=== PATIENT | female | born 1960 | race Caucasian/White ===

== ENCOUNTER 2017-09-07 17:00 | Observation (INO) | payer BC, OTHER ==
[~2017-09-07] VITALS: Ht 162.6 cm; Wt 114.4 kg
[~2017-09-07 17:00] MED LIST: DXY100 PO; IBUP-1050 PO; RANI75TA7 PO
[2017-09-07] MEDS ORDERED: ASPIRIN 81 MG CHEW PO STA (17:12)
[2017-09-07] MEDS ORDERED: NITROGLYCERIN 2% OINTMENT 30GM TUBE EXT ONE (17:15)
--- NOTE | 2017-09-07 17:35 | DIAGNOSTIC IMAGING REPORT ---
SINGLE VIEW CHEST CLINICAL HISTORY: Atypical chest pain. FINDINGS: An AP, portable, upright chest radiograph is obtained. No prior studies are available for comparison at the time of dictation. The examination is degraded by portable technique and patient rotation. The heart is mildly enlarged and there is atherosclerotic calcification of the thoracic ureter. There is mild pulmonary vascular congestion. No airspace consolidation or large pleural effusion is identified. No pneumothorax is seen. The skeletal structures are osteopenic. The bony thorax is grossly intact. IMPRESSION: 1. Mild cardiac enlargement with mild pulmonary vascular congestion. 2. No airspace consolidation or large pleural effusion is identified. Electronically signed by: Jonel Zhou M.D. 09/07/2017 5:34 PM Dictated Date/Time: 09/07/2017 5:33 PM
[2017-09-07 17:42] LABS: BASO % 0.2 %; BASO ABS # 0.02 K/uL (0-0.2); EOS % 1.8 %; EOS ABS # 0.21 K/uL (0-0.5); HEMATOCRIT 42.8 % (37-47); HEMOGLOBIN 14.6 g/dL (12.0-16.0); IG# 0.05 K/uL (0.00-0.02); LYMPH % 21.9 %; MEAN CELL VOLUME 85.1 fL (80-100); MEAN CORPUSCULAR HGB CONC 34.1 g/dl (32-36); MEAN PLATELET VOLUME 10.1 fL (7.4-10.4); MONO % 7.9 %; NEUT % 67.8 %; NEUT ABS # 7.74 K/uL (1.4-6.5); PLATELET COUNT 297 K/uL (130-400); RED CELL DISTRIBUTION WIDTH CV 13.5 % (11.5-14.5); WHITE BLOOD COUNT 11.42 K/uL (4.8-10.8)
[2017-09-07 17:49] LABS: PTT PATIENT 24.5 SECONDS (21.0-31.0)
[2017-09-07 17:58] LABS: ALBUMIN 3.8 gm/dl (3.4-5.0); CALCIUM 9.3 mg/dl (8.5-10.1); CREATININE 1.33 mg/dl (0.60-1.20)
[2017-09-07 18:02] LABS: TOTAL PROTEIN 8.4 gm/dl (6.4-8.2)
[2017-09-07] MEDS ORDERED: IBUP-1428 PO (18:06)
[2017-09-07] MEDS ORDERED: SULF800T23 PO (18:06)
[2017-09-07] MEDS ORDERED: MULT-1019 PO (18:06)
[2017-09-07] MEDS ORDERED: OPTIRAY 320 IV PRN (18:45)
--- NOTE | 2017-09-07 18:55 | DIAGNOSTIC IMAGING REPORT ---
CT ANGIOGRAM OF THE CHEST CLINICAL HISTORY: Atypical chest pain. Back pain. COMPARISON STUDY: Chest x-ray dated 09/07/2017. TECHNIQUE: Following the IV administration of 98 cc of Optiray 320, CT angiogram of the chest was performed from the upper abdomen to the thoracic inlet utilizing the pulmonary embolus protocol. Images are reviewed in the axial, sagittal, and coronal planes. 3-D MIPS images are created and assessed. IV contrast was administered without complication. A dose lowering technique was utilized adhering to the principles of ALARA. CT DOSE: 622.08 mGy.cm FINDINGS: Thyroid: Imaged portions of the thyroid gland are normal in size and attenuation. There are numerous low-attenuation thyroid nodules which measure up to 2.2 cm. Thoracic aorta: There is mild atherosclerotic calcification of the thoracic aorta, which is normal in caliber and demonstrates standard 3-vessel arch anatomy. No dissection is seen. Pulmonary vasculature: The pulmonary trunk is normal in caliber. There are no filling defects identified in main, lobar, or segmental pulmonary branches to suggest pulmonary embolus. Heart: The heart is top normal in size and there is trace pericardial fluid. Lungs and pleural spaces: Evaluation of lung parenchyma is modestly degraded by motion artifact. Mild paraseptal emphysematous change is seen at the apices. No airspace consolidation or pleural effusion is identified. The trachea and central airways are clear. There is an irregular nodule at the right lung base seen on image #101 which measures up to 9 mm. This demonstrates a small focus of central cavitation. There is dependent atelectasis. Scattered calcified granulomas are observed. Mediastinum: There is no mediastinal lymphadenopathy. [place]: Clear. Axillae: There is no axillary lymphadenopathy. Upper abdomen: Nonobstructing calculi are present in the partially imaged upper pole of the left kidney. Left-sided hydronephrosis versus a parapelvic cyst is identified. There is a small hiatal hernia. Skeletal structures: The Skeletal structures are osteopenic. A hemangioma is seen in the body of T3. No lytic or blastic bony lesions are seen. IMPRESSION: 1. There is no evidence of pulmonary embolus in the main, lobar, or segmental pulmonary arteries. 2. Nonobstructing calculi are seen in the partially imaged left kidney. A parapelvic cyst versus hydronephrosis is seen in the left upper pole. Correlate clinically and with urinalysis for evidence of ureterolithiasis. Consider ultrasound for further assessment. 3. Mild emphysema. 4. There is no airspace consolidation or pleural effusion. 5. There is an 9 mm irregular pulmonary nodule the right lung base with a tiny focus of central cavitation. This is pathologically indeterminant, and although this may be on an inflammatory basis a 3 month follow-up chest CT is recommended to document resolution as neoplasm could also have this appearance. 6. There are numerous low-attenuation thyroid nodules measure up to 2.2 cm. Follow-up with a nonemergent thyroid ultrasound is recommended for further assessment. 7. Additional findings as above. Electronically signed by: Jonel Zhou M.D. 09/07/2017 6:54 PM Dictated Date/Time: 09/07/2017 6:46 PM
[2017-09-07] MEDS ORDERED: ONDANSETRON INJ 2 MG/ML 2 ML VIAL IV STA (19:02)
[2017-09-07] MEDS ORDERED: HYDROmorphone INJ 1 MG/ML SYR IV STA (19:02)
[2017-09-07] MEDS ORDERED: SODIUM CHLORIDE 0.9% 1000ML 1,000 ML IV STA (19:02)
--- NOTE | 2017-09-07 20:04 | DIAGNOSTIC IMAGING REPORT ---
CT SCAN OF THE ABDOMEN AND PELVIS WITHOUT IV CONTRAST CLINICAL HISTORY: Left-sided abdominal pain. COMPARISON STUDY: CT of the chest performed concurrently on 09/07/2017. TECHNIQUE: CT scan of the abdomen and pelvis is performed from the lung bases to the proximal femora. Images are reviewed in the axial, sagittal, and coronal planes. IV contrast was not administered for this examination. A dose lowering technique was utilized adhering to the principles of ALARA. The examination is significantly suboptimal for renal calculus assessment due to excreted contrast within the renal collecting system. CT DOSE: 1361.10 mGy.cm FINDINGS: Lung bases: The heart is normal in size and without pericardial effusion. There is no airspace consolidation or pleural effusion. Dependent atelectasis is at the lung bases. A 9 mm irregular nodule seen at the right lung base on image #37. This demonstrates central cavitation. Scattered calcified granulomas are identified. There is a small hiatal hernia. Liver: The unenhanced liver is normal in size, contour, and attenuation. There is no intrahepatic biliary ductal dilatation. Gallbladder: Unremarkable. Spleen: Normal in size and attenuation. Pancreas: Unremarkable. Adrenal glands: Unremarkable. Kidneys: The unenhanced kidneys demonstrate mild cortical atrophy. Numerous bilateral nonobstructing renal calculi are suggested. These are not well assessed due to excreted IV contrast within the renal collecting system. There is moderate to severe left hydroureteronephrosis. The left ureter is dilated to the pelvic inlet. An obstructing ureteral calculus is suggested in image #3 and 34 measuring at least 8 mm. Again, this is suboptimally assessed due to excreted contrast within the ureter. There is no right-sided hydronephrosis. There is no evidence of contour deforming renal mass lesion. Abdominal vasculature: The abdominal aorta is normal in course and caliber noting mild atherosclerotic calcification. Bowel: The small bowel and colon are normal in course and caliber. The appendix is well-visualized and normal. Peritoneum: There is no intraperitoneal free air or abdominal ascites. There is a fat-containing umbilical hernia. Lymphadenopathy: None. Pelvic viscera: The bladder is filled with excreted contrast and grossly unremarkable. The uterus is surgically absent. No adnexal lesion is seen. Skeletal structures: The skeletal structures are osteopenic. No lytic or blastic lesions are seen. IMPRESSION: 1. Evaluation for renal calculi is significantly compromised by excreted IV contrast filling the renal collecting system and ureters. 2. Numerous bilateral nonobstructing renal calculi are suspected. 3. There is moderate to severe left hydroureteronephrosis. The left ureter is dilated to the level of the pelvic inlet where a large obstructing ureteral calculus is suspected measuring up to at least 8 mm. 4. There is no right-sided hydronephrosis. 5. A 9 mm irregular pulmonary nodule is again seen at the right lung base with minimal central cavitation. As noted in the chest CT neoplasm is to be excluded. Follow-up chest CT in 3 months time is recommended for reassessment. 6. Additional findings as above. Electronically signed by: Jonel Zhou M.D. 09/07/2017 8:02 PM Dictated Date/Time: 09/07/2017 7:55 PM
[2017-09-07] MEDS ORDERED: NITROGLYCERIN 0.2 MG/HR PATCH TD ONE (21:00)
--- NOTE | 2017-09-07 21:16 | History and Physical ---
History & Physical Date & Time of Service: Sep 07, 2017 at 21:12 Chief Complaint: Back Pain, Arm (Left) Tingling, Nausea Primary Care Physician: Sacha Galeas M.D. History of Present Illness Source: patient, hospital records 57 y/o F without any cardiovascular history. Developed severe L sided CP while sitting at her computer. The pain was largely at the L lower chest and radiated to the her back. She describes a pleuritic element, SOB and nausea. She denies vomiting or diaphoresis. She arrived in the ER and was sent for a CTA as a dissection and PE were in the differential. No PE or dissection were identified, however, she appears to have severe L sided hydronephrosis with an obstructing 8mm calculus. Initial EKG and troponin did not support a cardiac component to her symptoms. Mild JER and mild leukocytosis were present on labs which were otherwise normal. Past Medical/Surgical History 1) Rosacea 2) Obese 3) Renal calculi Surgical Problems: 1) Hysterectomy Family History Grandmother with CAD - no other reported heart disease in the family. Social History Quit smoking in the 90s - does not drink alcohol Smoking Status: Former Smoker Immunizations History of Influenza Vaccine: No History of Tetanus Vaccine?: Unknown History of Pneumococcal: No History of Hepatitis B Vaccine: Unknown Allergies Coded Allergies: Penicillins (Verified Allergy, Unknown, HIVES, 09/07/17) Home Medications Scheduled Multiple Vitamins W/ Minerals (Multivitamin Women), 1 TAB PO DAILY Sulfa/Trimethoprim (Bactrim Ds 800MG/160MG), 1 TAB PO DAILY Scheduled PRN Ibuprofen (Motrin), 800 MG PO Q8H PRN for Pain Review of Systems Constitutional: No fever, No chills, No sweats Eyes: No worsening of vision ENT: No hearing loss, No nasal symptoms Respiratory: + shortness of breath, + problem reported, No cough, No sputum, No wheezing Cardiovascular: + chest pain (pleuritic element - radiating to back) Abdomen: + nausea, No vomiting Musculoskeletal: No joint pain Genitourinary - Female: No dysuria, No urinary frequency, No urinary urgency Neurologic: No memory loss, No paralysis, No weakness Psychiatric: No depression symptoms Endocrine: No fatigue Hematologic / Lymphatic: No abnormal bleeding/bruising Integumentary: No rash Allergic / Immunologic: No environmental allergies Physical Exam Vital Signs Date Time Temp Pulse Resp B/P (MAP) Pulse Ox O2 Delivery O2 Flow Rate FiO2 09/07/17 20:05 90 17 167/110 94 Room Air 09/07/17 18:43 97 21 180/120 95 Room Air 09/07/17 17:51 95 Room Air 09/07/17 17:24 95 Room Air 09/07/17 17:24 95 Room Air 09/07/17 17:21 104 09/07/17 17:02 36.6 97 20 202/136 95 Room Air General Appearance: WD/WN, no apparent distress Head: normocephalic Eyes: normal inspection ENT: normal ENT inspection, pharynx normal Neck: supple, no JVD Respiratory/Chest: chest non-tender, lungs clear, normal breath sounds Cardiovascular: regular rate, rhythm Abdomen/GI: normal bowel sounds, non tender, soft Back: normal inspection, no CVA tenderness Extremities/Musculoskelatal: normal inspection, no calf tenderness Neurologic/Psych: well puller II-XII nml as tested, no motor/sensory deficits, alert, oriented x 3 Skin: normal color Diagnostics Laboratory Results Results Past 24 Hours Test 09/07/17 17:21 09/07/17 17:25 Range/Units White Blood Count 11.42 4.8-10.8 K/uL Red Blood Count 5.03 4.2-5.4 M/uL Hemoglobin 14.6 12.0-16.0 g/dL Hematocrit 42.8 37-47 % Mean Corpuscular Volume 85.1 80-100 fL Mean Corpuscular Hemoglobin 29.0 25-34 pg Mean Corpuscular Hemoglobin Concent 34.1 32-36 g/dl Platelet Count 297 130-400 K/uL Mean Platelet Volume 10.1 7.4-10.4 fL Neutrophils (%) (Auto) 67.8 % Lymphocytes (%) (Auto) 21.9 % Monocytes (%) (Auto) 7.9 % Eosinophils (%) (Auto) 1.8 % Basophils (%) (Auto) 0.2 % Neutrophils # (Auto) 7.74 1.4-6.5 K/uL Lymphocytes # (Auto) 2.50 1.2-3.4 K/uL Monocytes # (Auto) 0.90 0.11-0.59 K/uL Eosinophils # (Auto) 0.21 0-0.5 K/uL Basophils # (Auto) 0.02 0-0.2 K/uL RDW Standard Deviation 42.0 36.4-46.3 fL RDW Coefficient of Variation 13.5 11.5-14.5 % Immature Granulocyte % (Auto) 0.4 % Immature Granulocyte # (Auto) 0.05 0.00-0.02 K/uL Prothrombin Time 10.0 9.0-12.0 SECONDS Prothromb Time International Ratio 1.0 0.9-1.1 Activated Partial Thromboplast Time 24.5 21.0-31.0 SECONDS Partial Thromboplastin Ratio 0.9 Sodium Level 136 136-145 mmol/L Potassium Level 4.0 3.5-5.1 mmol/L Chloride Level 102 98-107 mmol/L Carbon Dioxide Level 27 21-32 mmol/L Anion Gap 7.0 3-11 mmol/L Blood Urea Nitrogen 15 7-18 mg/dl Creatinine 1.33 0.60-1.20 mg/dl Est Creatinine Clear Calc Drug Dose 57.3 ml/min Estimated GFR () 50.9 Estimated GFR (Non- 44.0 BUN/Creatinine Ratio 11.2 10-20 Random Glucose 117 70-99 mg/dl Calcium Level 9.3 8.5-10.1 mg/dl Total Bilirubin 0.4 0.2-1 mg/dl Direct Bilirubin 0.1 0-0.2 mg/dl Aspartate Amino Transf (AST/SGOT) 19 15-37 U/L Alanine Aminotransferase (ALT/SGPT) 25 12-78 U/L Alkaline Phosphatase 158 45-117 U/L Total Creatine Kinase 75 26-192 U/L Creatine Kinase MB 1.0 0.5-3.6 ng/ml Creatine Kinase MB Ratio 1.3 0-3.0 Total Protein 8.4 6.4-8.2 gm/dl Albumin 3.8 3.4-5.0 gm/dl Lipase 271 73-393 U/L Bedside D-Dimer > 450 0-450 ng/mlFEU Bedside Troponin I < 0.030 0-0.045 ng/ml Microbiology Results 09/07/17 Urine Culture, Received Pending Diagnostic Radiology CT abdomen/pelvis: 1) Numerous bilateral nonobstructing renal calculi are suspected. 2) There is moderate to severe left hydroureteronephrosis. The left ureter is dilated to the level of the pelvic inlet where a large obstructing ureteral calculus is suspected measuring up to at least 8 mm. 3) There is no right-sided hydronephrosis. 4) A 9 mm irregular pulmonary nodule is again seen at the right lung base with CT chest: 1) There is no evidence of pulmonary embolus in the main, lobar, or segmental pulmonary arteries. 2) Nonobstructing calculi are seen in the partially imaged left kidney. A parapelvic cyst versus hydronephrosis is seen in the left upper pole. Correlate clinically and with urinalysis for evidence of ureterolithiasis. Consider ultrasound for further assessment. 3) Mild emphysema. 4) There is no airspace consolidation or pleural effusion. 5) There is an 9 mm irregular pulmonary nodule the right lung base with a tiny focus of central cavitation. This is pathologically indeterminant, and although this may be on an inflammatory basis a 3 month follow-up chest CT is recommended to document resolution as neoplasm could also have this appearance. 6) There are numerous low-attenuation thyroid nodules measure up to 2.2 cm. Follow-up with a nonemergent thyroid ultrasound is recommended for further assessment. EKG Sinus tach Impression Assessment and Plan 57 y/o F without any cardiovascular history. Developed severe L sided CP while sitting at her computer. The pain was largely at the L lower chest and radiated to the her back. She describes a pleuritic element, SOB and nausea. She denies vomiting or diaphoresis. She arrived in the ER and was sent for a CTA as a dissection and PE were in the differential. No PE or dissection were identified, however, she appears to have severe L sided hydronephrosis with an obstructing 8mm calculus. Initial EKG and troponin did not support a cardiac component to her symptoms. Mild JER and mild leukocytosis were present on labs which were otherwise normal. 1) Chest pain - lower CP with SOB - this is likely the result of her calculus, however, we cannot rule out an anginal episode which was triggered by the primary etiology. We will monitor on telemetry and obtain serial enzymes. She can likely schedule an outpt stress eventually if enzymes remain normal. 2) Obstructing calculus with resultant hydronephrosis. No current evidence of infection. Urology is consulted as this may require lithotripsy. Analgesia provided - IVF, NPO after midnight. 3) Mild JER is present - IVF provided - recheck BMP AM. 4) The pt takes daily Bactrim for rosacea - can be held pending DC. Full code - SCDs only due to possible procedure Total time for this admit including review of labs, meds, imaging, records - discussion with pt and ER attending - 38 min Resuscitation Status VTE Prophylaxis Will order VTE Prophylaxis: Yes
--- NOTE | 2017-09-07 21:22 | EMERGENCY ROOM VISIT NOTE ---
History Report prepared by Salo: Marisela Dudley Under the Supervision of: Dr. Ramakrishna Luna D.O. First contact with patient: 17:07 Chief Complaint: CHEST PAIN Stated Complaint: BACK PAIN, ARM (LEFT) TINGLING, NAUSEA History of Present Illness The patient is a 57 year old female who presents to the Emergency Room with complaints of worsening chest pain starting earlier today. The pain is in the left side of her chest under her breast. She currently rates her discomfort as a 5/10 in severity. She describes the pain as an ache with intermittent sharp pains. It worsens with walking and deep breaths. The pain started while she was sitting at her computer. She tried taking ibuprofen to no significant relief. The pain is now going into her back. She feels nauseous. She reports tingling in her left hand. She has some SOB. She denies any vomiting or leg pain. She has a history of hysterectomy for fibroids. She denies any history of hypertension. She has not had a catheterization or stress test before. She has a history of smoking. Source of History: patient Onset: earlier today Position: chest (left) Symptom Intensity: 5/10 Quality: ache, sharp Timing: worsening Modifying Factors (Worsening): breathing (deep), other (walking) Associated Symptoms: + SOB, + nausea, + back pain, No vomiting Note: Pt reports left hand tingling. Pt denies leg pain. Review of Systems See HPI for pertinent positives & negatives. A total of 10 systems reviewed and were otherwise negative. Past Medical & Surgical Surgical Problems: (1) S/P hysterectomy Family History No pertinent family history stated. Social History Smoking Status: Former Smoker Marital Status: Current/Historical Medications Scheduled Multiple Vitamins W/ Minerals (Multivitamin Women), 1 TAB PO DAILY Sulfa/Trimethoprim (Bactrim Ds 800MG/160MG), 1 TAB PO DAILY Scheduled PRN Ibuprofen (Motrin), 800 MG PO Q8H PRN for Pain Allergies Coded Allergies: Penicillins (Verified Allergy, Unknown, HIVES, 09/07/17) Physical Exam Vital Signs Date Time Temp Pulse Resp B/P (MAP) Pulse Ox O2 Delivery O2 Flow Rate FiO2 09/07/17 20:05 90 17 167/110 94 Room Air 09/07/17 18:43 97 21 180/120 95 Room Air 09/07/17 17:51 95 Room Air 09/07/17 17:24 95 Room Air 09/07/17 17:24 95 Room Air 09/07/17 17:21 104 09/07/17 17:02 36.6 97 20 202/136 95 Room Air Physical Exam GENERAL: Patient is awake, alert, very anxious appearing, and appears to be uncomfortable. EYES: The conjunctivae are clear. The pupils are round and reactive. EARS, NOSE, MOUTH AND THROAT: The nose is without any evidence of any deformity. Mucous membranes are moist tongue is midline NECK: The neck is nontender and supple. RESPIRATORY: Normal respiratory effort is noted there is no evidence of wheezing rhonchi or rales CARDIOVASCULAR: Regular rate and rhythm noted there no murmurs rubs or gallops normal S1 normal S2 GASTROINTESTINAL: The abdomen is soft. Bowel sounds are present in all quadrants. Abdomen is nontender MUSCULOSKELETAL/EXTREMITIES: There is no evidence of gross deformity full range of motion is noted in the hips and shoulders SKIN: There is no obvious evidence of any rash. There are no petechiae, pallor or cyanosis noted. NEUROLOGIC: Patient is awake alert and oriented x3 strength is symmetric patellar reflexes are 2+ bilaterally Medical Decision & Procedures ER Provider Diagnostic Interpretation: X-ray results as stated below per interpretation by me and the radiologist. Radiology results as stated below per my review and radiologist interpretation: SINGLE VIEW CHEST CLINICAL HISTORY: Atypical chest pain. FINDINGS: An AP, portable, upright chest radiograph is obtained. No prior studies are available for comparison at the time of dictation. The examination is degraded by portable technique and patient rotation. The heart is mildly enlarged and there is atherosclerotic calcification of the thoracic ureter. There is mild pulmonary vascular congestion. No airspace consolidation or large pleural effusion is identified. No pneumothorax is seen. The skeletal structures are osteopenic. The bony thorax is grossly intact. IMPRESSION: 1. Mild cardiac enlargement with mild pulmonary vascular congestion. 2. No airspace consolidation or large pleural effusion is identified. Electronically signed by: Jonel Zhou M.D. 09/07/2017 5:34 PM Dictated Date/Time: 09/07/2017 5:[address] ANGIOGRAM OF THE CHEST CLINICAL HISTORY: Atypical chest pain. Back pain. COMPARISON STUDY: Chest x-ray dated 09/07/2017. TECHNIQUE: Following the IV administration of 98 cc of Optiray 320, CT angiogram of the chest was performed from the upper abdomen to the thoracic inlet utilizing the pulmonary embolus protocol. Images are reviewed in the axial, sagittal, and coronal planes. 3-D MIPS images are created and assessed. IV contrast was administered without complication. A dose lowering technique was utilized adhering to the principles of ALARA. CT DOSE: 622.08 mGy.cm FINDINGS: Thyroid: Imaged portions of the thyroid gland are normal in size and attenuation. There are numerous low-attenuation thyroid nodules which measure up to 2.2 cm. Thoracic aorta: There is mild atherosclerotic calcification of the thoracic aorta, which is normal in caliber and demonstrates standard 3-vessel arch anatomy. No dissection is seen. Pulmonary vasculature: The pulmonary trunk is normal in caliber. There are no filling defects identified in main, lobar, or segmental pulmonary branches to suggest pulmonary embolus. Heart: The heart is top normal in size and there is trace pericardial fluid. Lungs and pleural spaces: Evaluation of lung parenchyma is modestly degraded by motion artifact. Mild paraseptal emphysematous change is seen at the apices. No airspace consolidation or pleural effusion is identified. The trachea and central airways are clear. There is an irregular nodule at the right lung base seen on image #101 which measures up to 9 mm. This demonstrates a small focus of central cavitation. There is dependent atelectasis. Scattered calcified granulomas are observed. Mediastinum: There is no mediastinal lymphadenopathy. [place]: Clear. Axillae: There is no axillary lymphadenopathy. Upper abdomen: Nonobstructing calculi are present in the partially imaged upper pole of the left kidney. Left-sided hydronephrosis versus a parapelvic cyst is identified. There is a small hiatal hernia. Skeletal structures: The Skeletal structures are osteopenic. A hemangioma is seen in the body of T3. No lytic or blastic bony lesions are seen. IMPRESSION: 1. There is no evidence of pulmonary embolus in the main, lobar, or segmental pulmonary arteries. 2. Nonobstructing calculi are seen in the partially imaged left kidney. A parapelvic cyst versus hydronephrosis is seen in the left upper pole. Correlate clinically and with urinalysis for evidence of ureterolithiasis. Consider ultrasound for further assessment. 3. Mild emphysema. 4. There is no airspace consolidation or pleural effusion. 5. There is an 9 mm irregular pulmonary nodule the right lung base with a tiny focus of central cavitation. This is pathologically indeterminant, and although this may be on an inflammatory basis a 3 month follow-up chest CT is recommended to document resolution as neoplasm could also have this appearance. 6. There are numerous low-attenuation thyroid nodules measure up to 2.2 cm. Follow-up with a nonemergent thyroid ultrasound is recommended for further assessment. 7. Additional findings as above. Electronically signed by: Jonel Zhou M.D. 09/07/2017 6:54 PM Dictated Date/Time: 09/07/2017 6:[address] SCAN OF THE ABDOMEN AND PELVIS WITHOUT IV CONTRAST CLINICAL HISTORY: Left-sided abdominal pain. COMPARISON STUDY: CT of the chest performed concurrently on 09/07/2017. TECHNIQUE: CT scan of the abdomen and pelvis is performed from the lung bases to the proximal femora. Images are reviewed in the axial, sagittal, and coronal planes. IV contrast was not administered for this examination. A dose lowering technique was utilized adhering to the principles of ALARA. The examination is significantly suboptimal for renal calculus assessment due to excreted contrast within the renal collecting system. CT DOSE: 1361.10 mGy.cm FINDINGS: Lung bases: The heart is normal in size and without pericardial effusion. There is no airspace consolidation or pleural effusion. Dependent atelectasis is at the lung bases. A 9 mm irregular nodule seen at the right lung base on image #37. This demonstrates central cavitation. Scattered calcified granulomas are identified. There is a small hiatal hernia. Liver: The unenhanced liver is normal in size, contour, and attenuation. There is no intrahepatic biliary ductal dilatation. Gallbladder: Unremarkable. Spleen: Normal in size and attenuation. Pancreas: Unremarkable. Adrenal glands: Unremarkable. Kidneys: The unenhanced kidneys demonstrate mild cortical atrophy. Numerous bilateral nonobstructing renal calculi are suggested. These are not well assessed due to excreted IV contrast within the renal collecting system. There is moderate to severe left hydroureteronephrosis. The left ureter is dilated to the pelvic inlet. An obstructing ureteral calculus is suggested in image #3 and 34 measuring at least 8 mm. Again, this is suboptimally assessed due to excreted contrast within the ureter. There is no right-sided hydronephrosis. There is no evidence of contour deforming renal mass lesion. Abdominal vasculature: The abdominal aorta is normal in course and caliber noting mild atherosclerotic calcification. Bowel: The small bowel and colon are normal in course and caliber. The appendix is well-visualized and normal. Peritoneum: There is no intraperitoneal free air or abdominal ascites. There is a fat-containing umbilical hernia. Lymphadenopathy: None. Pelvic viscera: The bladder is filled with excreted contrast and grossly unremarkable. The uterus is surgically absent. No adnexal lesion is seen. Skeletal structures: The skeletal structures are osteopenic. No lytic or blastic lesions are seen. IMPRESSION: 1. Evaluation for renal calculi is significantly compromised by excreted IV contrast filling the renal collecting system and ureters. 2. Numerous bilateral nonobstructing renal calculi are suspected. 3. There is moderate to severe left hydroureteronephrosis. The left ureter is dilated to the level of the pelvic inlet where a large obstructing ureteral calculus is suspected measuring up to at least 8 mm. 4. There is no right-sided hydronephrosis. 5. A 9 mm irregular pulmonary nodule is again seen at the right lung base with minimal central cavitation. As noted in the chest CT neoplasm is to be excluded. Follow-up chest CT in 3 months time is recommended for reassessment. 6. Additional findings as above. Electronically signed by: Jonel Zhou M.D. 09/07/2017 8:02 PM Dictated Date/Time: 09/07/2017 7:55 PM Laboratory Results Test 09/07/17 17:21 09/07/17 17:25 Immature Granulocyte % (Auto) 0.4 % White Blood Count 11.42 K/uL (4.8-10.8) Red Blood Count 5.03 M/uL (4.2-5.4) Hemoglobin 14.6 g/dL (12.0-16.0) Hematocrit 42.8 % (37-47) Mean Corpuscular Volume 85.1 fL (80-100) Mean Corpuscular Hemoglobin 29.0 pg (25-34) Mean Corpuscular Hemoglobin Concent 34.1 g/dl (32-36) Platelet Count 297 K/uL (130-400) Mean Platelet Volume 10.1 fL (7.4-10.4) Neutrophils (%) (Auto) 67.8 % Lymphocytes (%) (Auto) 21.9 % Monocytes (%) (Auto) 7.9 % Eosinophils (%) (Auto) 1.8 % Basophils (%) (Auto) 0.2 % Neutrophils # (Auto) 7.74 K/uL (1.4-6.5) Lymphocytes # (Auto) 2.50 K/uL (1.2-3.4) Monocytes # (Auto) 0.90 K/uL (0.11-0.59) Eosinophils # (Auto) 0.21 K/uL (0-0.5) Basophils # (Auto) 0.02 K/uL (0-0.2) Immature Granulocyte # (Auto) 0.05 K/uL (0.00-0.02) Prothrombin Time 10.0 SECONDS (9.0-12.0) Prothromb Time International Ratio 1.0 (0.9-1.1) Activated Partial Thromboplast Time 24.5 SECONDS (21.0-31.0) Partial Thromboplastin Ratio 0.9 Total Bilirubin 0.4 mg/dl (0.2-1) Direct Bilirubin 0.1 mg/dl (0-0.2) Aspartate Amino Transf (AST/SGOT) 19 U/L (15-37) Alanine Aminotransferase (ALT/SGPT) 25 U/L (12-78) Alkaline Phosphatase 158 U/L (45-117) Total Creatine Kinase 75 U/L (26-192) Creatine Kinase MB 1.0 ng/ml (0.5-3.6) Creatine Kinase MB Ratio 1.3 (0-3.0) Total Protein 8.4 gm/dl (6.4-8.2) Albumin 3.8 gm/dl (3.4-5.0) Lipase 271 U/L (73-393) Bedside D-Dimer > 450 ng/mlFEU (0-450) Bedside Troponin I < 0.030 ng/ml (0-0.045) Laboratory results per my review. Medications Administered Medications (Trade) Dose Ordered Sig/Elaine Route Start Time Stop Time Status Last Admin Dose Admin Aspirin (Aspirin Chew) 324 mg NOW STAT PO 09/07/17 17:12 09/07/17 17:15 DC 09/07/17 17:32 324 MG Nitroglycerin (Nitroglycerin 2% Oint) 1 inch NOW ONCE EXT 09/07/17 17:15 09/07/17 17:16 DC 09/07/17 17:33 1 INCH Hydromorphone HCl (Dilaudid Inj) 1 mg NOW STAT IV 09/07/17 19:02 09/07/17 19:04 DC 09/07/17 19:08 1 MG Ondansetron HCl (Zofran Inj) 4 mg NOW STAT IV 09/07/17 19:02 09/07/17 19:04 DC 09/07/17 19:08 4 MG Sodium Chloride 1,000 ml @ 999 mls/hr Q1H1M STAT IV 09/07/17 19:02 09/07/17 20:02 DC 09/07/17 19:08 999 MLS/HR Hydralazine HCl (HydrALAZINE INJ) 2.5 mg Q6H PRN IV. 09/07/17 21:00 10/07/17 20:59 09/07/17 23:56 2.5 MG Nitroglycerin (Nitro-Dur 0.2 Mg/Hr Patch) 1 patch ONE ONCE TD 09/07/17 21:00 09/07/17 23:25 DC 09/08/17 00:10 1 PATCH ECG Per My Interpretation Indication: chest pain Rate (beats per minute): 97 Rhythm: normal sinus Findings: Q waves (Inferior), no ectopy Comparison ECG Date: 28-Oct-2007 Change: no significant change ED Course 1710: The patient was evaluated in room A12B. A complete history and physical examination were performed. 171: Aspirin 324 mg PO. 171: Nitroglycerin 1 inch EXT. 1746: I reevaluated the patient. I updated her on the results. 1901: NSS 1,000 ml @ 999 mls/hr IV, Zofran Inj 4 mg IV, Dilaudid Inj 1 mg IV. 1902: I reevaluated the patient. I updated her on the results. 2011: I reevaluated the patient. I updated her on the results. 2014: I discussed the patient's case with Dr. Martinez [facility] urology. He recommends keeping the patient. 2019: Upon reevaluation, the patient is stable. I discussed results and treatment plan with her. She verbalizes agreement and understanding. The patient will be evaluated for further management and care. 2100: I discussed the patient's case with Dr. Ramirez [facility] hospitalist. The patient will be evaluated for further management. Medical Decision Prior records/ancillary studies reviewed. Triage Nursing notes reviewed. The patient's history was concerning for chest pain. Differential diagnosis: Etiologies such as cardiac ischemia, aortic dissection, pulmonary embolism, pneumonia, pneumothorax, musculoskeletal, infections, pericarditis, myocarditis , esophageal rupture, gastrointestinal, as well as others were entertained. The patient is a 57-year-old female who presented to the [facility] department for an evaluation of chest pain. The patient had very significant chest pain with radiation to her back. When she first came to the emergency department she was very uncomfortable and her blood pressure was very high. I was very concerned this could represent an acute coronary syndrome. The patient had a positive d- dimer which prompted a CT the chest to rule out pulmonary embolism. She was treated initially with nitroglycerin paste and aspirin. The patient was noted to have hydronephrosis on the CAT scan of the chest on the left. This prompted a CT of the abdomen and pelvis which showed a very significant left ureteral obstruction likely secondary to a calculus. I do feel that overall the patient' s condition was indicative of this ureteral calculus. I discussed patient's laboratory and radiographic studies with her. She was treated with pain medication. Because of the size of the calculus I discussed her case with the on-call urologist as well as the on-call [facility] hospitalist group. They have agreed to evaluate the patient in the emergency department for further management and disposition. Medication Reconcilliation Current Medication List: was personally reviewed by me Blood Pressure Screening Patient's blood pressure: Elevated blood pressure Blood pressure disposition: Elevated BP felt to be situational Consults Time Called: 2010 Consulting Physician: Dr. Martinez [facility] urology Returned Call: 2014 I discussed the patient's case with him. He recommends keeping the patient. Additional Consults: Time Called: 2017 Consulted Physician: Dr. Ramirez [facility] hospitalist Returned Call: 2100 Additional Comments: I discussed the patient's case with him. The patient will be evaluated for further management. Impression Primary Impression: Hydronephrosis Additional Impressions: Ureteral calculus Chest pain Scribe Attestation The scribe's documentation has been prepared under my direction and personally reviewed by me in its entirety. I confirm that the note above accurately reflects all work, treatment, procedures, and medical decision making performed by me. Departure Information Dispostion Being Evaluated By Hospitalist Referrals Sacha Galeas M.D. (PCP) Patient Instructions My [facility] Problem Qualifiers Primary Impression: Hydronephrosis Hydronephrosis type: with renal and ureteral calculous obstruction Qualified Codes: N13.2 - Hydronephrosis with renal and ureteral calculous obstruction Additional Impressions: Chest pain Chest pain type: unspecified Qualified Codes: R07.9 - Chest pain, unspecified
[2017-09-07] MEDS ORDERED: ONDANSETRON INJ 2 MG/ML 2 ML VIAL IV PRN (21:30)
[2017-09-07] MEDS ORDERED: ZOLPIDEM TARTRATE 5 MG TAB PO PRN (21:30)
[2017-09-07] MEDS ORDERED: MAGNESIUM HYDROXIDE SUSP 30 ML UDC PO PRN (21:30)
[2017-09-07] MEDS ORDERED: ALUMINUM/MAGNESIUM/SIMETH (MAALOX MAX) 30 ML UDC PO PRN (21:30)
[2017-09-07] MEDS ORDERED: HYDROmorphone INJ 1 MG/ML SYR IV PRN (21:30)
[2017-09-07] MEDS ORDERED: POLYETHYLENE (MIRALAX) 17 GM PACK PO PRN (21:30)
[2017-09-07 22:28] VITALS: O2SAT 94
[2017-09-07 23:31] VITALS: BP 179/101; PULSE 91; TEMP 36.7; O2SAT 93
[2017-09-07 23:32] VITALS: BP 179/101; PULSE 91; TEMP 36.7; Ht 162.6 cm; Wt 114.4 kg
[2017-09-07] MEDS: HydrALAZINE HCL 20 MG/ML VIAL IV. PRN (23:56)
[2017-09-08] VITALS (11 sets, daily range): BP systolic 133–167; BP diastolic 82–108; PULSE 80–110; TEMP 36.5–36.9; O2SAT 92–96
[2017-09-08] MEDS: D5NSS + 20MEQ KCL 1,000 ML IV SCH ×2 (00:09→07:22)
[2017-09-08] MEDS ORDERED: IV FLUIDS COMPLETED PRN (02:00)
[2017-09-08] MEDS: HYDROmorphone INJ 2 MG/ML SYR/VIAL IV PRN ×2 (04:27→08:37)
[2017-09-08 04:51] LABS: HEMATOCRIT 38.5 % (37-47); HEMOGLOBIN 12.9 g/dL (12.0-16.0); MEAN CELL VOLUME 85.7 fL (80-100); MEAN CORPUSCULAR HEMOGLOBIN 28.7 pg (25-34); MEAN CORPUSCULAR HGB CONC 33.5 g/dl (32-36); MEAN PLATELET VOLUME 9.6 fL (7.4-10.4); PLATELET COUNT 235 K/uL (130-400); RED CELL DISTRIBUTION WIDTH CV 13.7 % (11.5-14.5); RED CELL DISTRIBUTION WIDTH SD 42.5 fL (36.4-46.3); WHITE BLOOD COUNT 11.32 K/uL (4.8-10.8)
[2017-09-08 05:18] LABS: BLOOD UREA NITROGEN 13 mg/dl (7-18); CALCIUM 8.6 mg/dl (8.5-10.1); CARBON DIOXIDE 27 mmol/L (21-32); CREATININE 1.23 mg/dl (0.60-1.20); GLUCOSE 131 mg/dl (70-99); POTASSIUM 4.2 mmol/L (3.5-5.1); SODIUM 136 mmol/L (136-145)
[2017-09-08] MEDS ORDERED: MAGNESIUM SULFATE 1GM / D5W 100 ML IV ONE (08:45)
[2017-09-08] MEDS ORDERED: CIPROFLOXACIN / D5W 400 MG IV SCH (11:00)
--- NOTE | 2017-09-08 11:21 | Urology Consultation ---
History General Date of Service: Sep 08, 2017. Chief Complaint: left flank pain Primary Care Physician: Sacha Galeas M.D. Pt seen a urologist before?: Yes (Dr. Anne ) If yes, why?: nephrolithiaisis History of Present Illness 57 yo female admitted yesterday for left flank and chest pain. Cardiac/ respiratory eval has been unremarkable. consulted for findings of left hydronephrosis and an 8mm left ureteral stone on CT. The pt reports a hx of passing a stone many years ago. She has previously seen Dr. Anne several years ago for stones. She reports left flank pain 3/10 this morning. + intermittent nausea. Denies dysuria or hematuria. She is afebrile. White count is 11.32. Cr is 1.23. Imaging Imaging: CT Laboratory Last 24 Hours Test 09/07/17 17:21 09/07/17 17:25 09/07/17 23:06 09/07/17 23:15 White Blood Count 11.42 K/uL Red Blood Count 5.03 M/uL Hemoglobin 14.6 g/dL Hematocrit 42.8 % Mean Corpuscular Volume 85.1 fL Mean Corpuscular Hemoglobin 29.0 pg Mean Corpuscular Hemoglobin Concent 34.1 g/dl Platelet Count 297 K/uL Mean Platelet Volume 10.1 fL Neutrophils (%) (Auto) 67.8 % Lymphocytes (%) (Auto) 21.9 % Monocytes (%) (Auto) 7.9 % Eosinophils (%) (Auto) 1.8 % Basophils (%) (Auto) 0.2 % Neutrophils # (Auto) 7.74 K/uL Lymphocytes # (Auto) 2.50 K/uL Monocytes # (Auto) 0.90 K/uL Eosinophils # (Auto) 0.21 K/uL Basophils # (Auto) 0.02 K/uL RDW Standard Deviation 42.0 fL RDW Coefficient of Variation 13.5 % Immature Granulocyte % (Auto) 0.4 % Immature Granulocyte # (Auto) 0.05 K/uL Prothrombin Time 10.0 SECONDS Prothromb Time International Ratio 1.0 Activated Partial Thromboplast Time 24.5 SECONDS Partial Thromboplastin Ratio 0.9 Sodium Level 136 mmol/L Potassium Level 4.0 mmol/L Chloride Level 102 mmol/L Carbon Dioxide Level 27 mmol/L Anion Gap 7.0 mmol/L Blood Urea Nitrogen 15 mg/dl Creatinine 1.33 mg/dl Est Creatinine Clear Calc Drug Dose 57.3 ml/min Estimated GFR () 50.9 Estimated GFR (Non- 44.0 BUN/Creatinine Ratio 11.2 Random Glucose 117 mg/dl Calcium Level 9.3 mg/dl Total Bilirubin 0.4 mg/dl Direct Bilirubin 0.1 mg/dl Aspartate Amino Transf (AST/SGOT) 19 U/L Alanine Aminotransferase (ALT/SGPT) 25 U/L Alkaline Phosphatase 158 U/L Total Creatine Kinase 75 U/L Creatine Kinase MB 1.0 ng/ml Creatine Kinase MB Ratio 1.3 Total Protein 8.4 gm/dl Albumin 3.8 gm/dl Lipase 271 U/L Bedside D-Dimer > 450 ng/mlFEU Bedside Troponin I < 0.030 ng/ml Troponin I < 0.015 ng/ml Urine Color YELLOW Urine Appearance CLEAR Urine pH 6.5 Urine Specific [place] 1.043 Urine Protein NEG Urine Glucose (UA) NEG Urine Ketones NEG Urine Occult Blood TRACE Urine Nitrite NEG Urine Bilirubin NEG Urine Urobilinogen NEG Urine Leukocyte Esterase SMALL Urine WBC (Auto) 10-30 /hpf Urine RBC (Auto) 5-10 /hpf Urine Hyaline Casts (Auto) 0 /lpf Urine Epithelial Cells (Auto) 10-20 /lpf Urine Bacteria (Auto) NEG Test 09/08/17 04:42 White Blood Count 11.32 K/uL Red Blood Count 4.49 M/uL Hemoglobin 12.9 g/dL Hematocrit 38.5 % Mean Corpuscular Volume 85.7 fL Mean Corpuscular Hemoglobin 28.7 pg Mean Corpuscular Hemoglobin Concent 33.5 g/dl RDW Standard Deviation 42.5 fL RDW Coefficient of Variation 13.7 % Platelet Count 235 K/uL Mean Platelet Volume 9.6 fL Sodium Level 136 mmol/L Potassium Level 4.2 mmol/L Chloride Level 108 mmol/L Carbon Dioxide Level 27 mmol/L Anion Gap 1.0 mmol/L Blood Urea Nitrogen 13 mg/dl Creatinine 1.23 mg/dl Est Creatinine Clear Calc Drug Dose 61.9 ml/min Estimated GFR () 56.0 Estimated GFR (Non- 48.3 BUN/Creatinine Ratio 10.2 Random Glucose 131 mg/dl Calcium Level 8.6 mg/dl Magnesium Level 1.7 mg/dl Troponin I < 0.015 ng/ml Problem List Medical Problems: (1) Chest pain Status: Acute (2) Hydronephrosis Status: Acute (3) Ureteral calculus Status: Acute Past History kidney stones, other (rosacea, obesity) Past Surgical History: hysterectomy Family History grandmother- CAD Social History Hx Tobacco Use In Past Year?: No Smoking: quit greater than 1 year (quit in the ) Alcohol: never Marital status: Housing status: lives with family Immunizations History of Influenza Vaccine: No History of Tetanus Vaccine?: Unknown History of Pneumococcal: No History of Hepatitis B Vaccine: Unknown History of MDRO No Allergies Coded Allergies: Penicillins (Verified Allergy, Unknown, HIVES, 09/07/17) Medications Home Medications: Home Meds and Scripts Medications Dose Route/Sig Max Daily Dose Days Date Category Dose Instructions Motrin (Ibuprofen) 800 Mg Tab 800 Mg PO Q8H PRN 09/07/17 Reported Bactrim Ds 800MG/160MG (Trimethoprim/Sulfamethoxazole) Tab 1 Tab PO DAILY 09/07/17 Reported pt says shes able to take bid if having a flare up Multivitamin Women (Multiple Vitamins W/ Minerals) 1 Tab Tab 1 Tab PO DAILY 09/07/17 Reported Inpatient Medications: Current Inpatient Medications Medications (Trade) Dose Ordered Sig/Elaine Route Start Time Stop Time Status Last Admin Dose Admin Ioversol (Optiray 320) 98 ml UD PRN IV 09/07/17 18:45 09/11/17 18:44 Hydralazine HCl (HydrALAZINE INJ) 2.5 mg Q6H PRN IV. 09/07/17 21:00 10/07/17 20:59 09/07/17 23:56 2.5 MG Potassium Chloride/Dextrose/ Sod Cl 1,000 ml @ 125 mls/hr Q8H IV 09/07/17 23:30 09/08/17 15:29 09/08/17 07:22 125 MLS/HR Acetaminophen (Tylenol Tab) 650 mg Q4H PRN PO 09/07/17 21:30 10/07/17 21:29 Al Hydrox/Mg Hydrox/Simethicone (Maalox Max Susp) 15 ml Q4H PRN PO 09/07/17 21:30 10/07/17 21:29 Magnesium Hydroxide (Milk Of Magnesia Susp) 30 ml Q12H PRN PO 09/07/17 21:30 10/07/17 21:29 Zolpidem Tartrate (Ambien Tab) 5 mg HSZ PRN PO 09/07/17 21:30 10/07/17 21:29 Ondansetron HCl (Zofran Inj) 4 mg Q6H PRN IV 09/07/17 21:30 10/07/17 21:29 Polyethylene (Miralax Powder Packet) 17 gm DAILY PRN PO 09/07/17 21:30 10/07/17 21:29 Miscellaneous (Iv Fluids Completed) 1 ea PRN PRN N/A 09/08/17 02:00 09/08/18 01:59 Hydromorphone HCl (Dilaudid Inj) 1 mg Q3H PRN IV 09/08/17 04:30 09/22/17 04:29 09/08/17 08:37 1 MG Review of Systems Review of Systems Constitutional: No fever, No chills Eyes: No double vision Neurological: No dizzy Endocrine: No excessive thirst Gastrointestinal: + abdominal pain (left flank ), + nausea, No vomiting Cardiovascular: No chest pain Respiratory: No shortness of breath Skin: No rash Musculoskeletal: + back pain (left low back ) Blood / Lymphatic: No bleed easily Female : No painful urination, No blood in urine Physical Exam Vital Signs: Vital Signs Past 12 Hours Date Time Temp Pulse Resp B/P (MAP) Pulse Ox O2 Delivery O2 Flow Rate FiO2 09/08/17 08:33 36.5 91 19 143/84 (103) 94 Room Air 09/08/17 04:00 Room Air 09/08/17 04:00 36.7 80 18 144/93 (110) 94 Room Air 09/08/17 01:06 137/83 (101) 09/08/17 00:01 Room Air 09/07/17 23:32 36.7 91 16 179/101 Room Air 09/07/17 23:31 36.7 91 16 179/101 (127) 93 Room Air Physical Exam: General Appearance: no apparent distress, + obese Eyes: bilateral eyes normal inspection ENT: hearing grossly normal Neck: no JVD Respiratory/Chest: no respiratory distress, no accessory muscle use Cardiovascular: no JVD Extremities: normal inspection Neurologic/Psychiatric: alert, normal mood/affect, oriented x 3 Skin: normal color Assessment & Plan Assessment & Plan Treatment Planned: cystoscopy w/ stent A/P: Left ureteral stone Tx options discussed with the pt today have included a trial of passage with MET vs cystoscopy with left ureteral stent placement. She prefers cysto with stent placement at this time. Risks and benefits of the procedure discussed with the pt. All questions answered. Pt agrees to the procedure at this time. Chest x-ray and EKG in chart. Will order Cipro pre-op. Thanks for the consult. Will continue to follow along with primary service.
[2017-09-08] MEDS ORDERED: CIPROFLOXACIN 400MG / 200ML D5W IV ONE (12:00)
--- NOTE | 2017-09-08 12:04 | DIAGNOSTIC IMAGING REPORT ---
KUB CLINICAL HISTORY: 57 years-old Female presenting with left ureteral stone . TECHNIQUE: Single supine view of the abdomen was obtained. COMPARISON: 03/30/[address] from 09/07/2017. FINDINGS: Nonobstructive bowel gas pattern. No gross pneumoperitoneum. Bilateral nephrolithiasis. The previously noted calculus at the mid distal left ureter may project at the inferior aspect of the left sacroiliac joint. Stable distribution of pelvic phleboliths in comparison to 2012. Osseous structures normal. Lung bases clear. IMPRESSION: 1. Left ureteral calculus likely remains in the mid to distal left ureter projecting over the inferior aspect of the left sacroiliac joint. 2. Bilateral nephrolithiasis. Electronically signed by: Rogelio Werner M.D. 09/08/2017 12:03 PM Dictated Date/Time: 09/08/2017 11:58 AM
--- NOTE | 2017-09-08 13:29 | Hospitalist Progress Note ---
Hospitalist Progress Note Date of Service Sep 08, 2017. (Maria Elena Ortega ., AMOL-C) Subjective Pt evaluation today including: conversation w/ patient, physical exam, lab review, review of studies, conversation w/ franchise business consultant, review of inpatient medication list Voiding: no voiding problems Patient resting in bed. NPO for urological procedure this afternoon. Pain still present but controlled w/ PRN pain medication. No more episodes of chest pain. Patient denies any fever, chills, sweats, lightheadedness, dizziness, vision changes, CP, palpitations, edema, SOB, wheezing, cough, abdominal pain, nausea, vomiting, diarrhea, urinary symptoms, melena, numbness/tingling, weakness, muscle/joint pain, anxiety/depression, active bleeding, or new skin discoloration/changes. Discussed w/ urology- stent this afternoon, can likely be discharged home tomorrow. (Maria Elena Ortega ., AMOL-C) Medications Current Inpatient Medications Medications (Trade) Dose Ordered Sig/Elaine Route Start Time Stop Time Status Last Admin Dose Admin Ioversol (Optiray 320) 98 ml UD PRN IV 09/07/17 18:45 09/11/17 18:44 Hydralazine HCl (HydrALAZINE INJ) 2.5 mg Q6H PRN IV. 09/07/17 21:00 10/07/17 20:59 09/07/17 23:56 2.5 MG Potassium Chloride/Dextrose/ Sod Cl 1,000 ml @ 125 mls/hr Q8H IV 09/07/17 23:30 09/08/17 15:29 09/08/17 07:22 125 MLS/HR Acetaminophen (Tylenol Tab) 650 mg Q4H PRN PO 09/07/17 21:30 10/07/17 21:29 Al Hydrox/Mg Hydrox/Simethicone (Maalox Max Susp) 15 ml Q4H PRN PO 09/07/17 21:30 10/07/17 21:29 Magnesium Hydroxide (Milk Of Magnesia Susp) 30 ml Q12H PRN PO 09/07/17 21:30 10/07/17 21:29 Zolpidem Tartrate (Ambien Tab) 5 mg HSZ PRN PO 09/07/17 21:30 10/07/17 21:29 Ondansetron HCl (Zofran Inj) 4 mg Q6H PRN IV 09/07/17 21:30 10/07/17 21:29 Polyethylene (Miralax Powder Packet) 17 gm DAILY PRN PO 09/07/17 21:30 10/07/17 21:29 Miscellaneous (Iv Fluids Completed) 1 ea PRN PRN N/A 09/08/17 02:00 09/08/18 01:59 Hydromorphone HCl (Dilaudid Inj) 1 mg Q3H PRN IV 09/08/17 04:30 09/22/17 04:29 09/08/17 08:37 1 MG Ciprofloxacin/ Dextrose 200 ml @ 100 mls/hr PREOP IV 09/08/17 11:00 09/08/17 18:00 (Maria Elena Ortega PA-C) Objective Vital Signs Date Time Temp Pulse Resp B/P (MAP) Pulse Ox O2 Delivery O2 Flow Rate FiO2 09/08/17 12:00 36.9 16 138/88 (105) 95 Room Air 09/08/17 08:33 36.5 91 19 143/84 (103) 94 Room Air 09/08/17 04:00 Room Air 09/08/17 04:00 36.7 80 18 144/93 (110) 94 Room Air 09/08/17 01:06 137/83 (101) 09/08/17 00:01 Room Air 09/07/17 23:32 36.7 91 16 179/101 Room Air 09/07/17 23:31 36.7 91 16 179/101 (127) 93 Room Air 09/07/17 22:28 90 17 167/110 94 09/07/17 20:05 90 17 167/110 94 Room Air 09/07/17 18:43 97 21 180/120 95 Room Air 09/07/17 17:51 95 Room Air 09/07/17 17:24 95 Room Air 09/07/17 17:24 95 Room Air 09/07/17 17:21 104 09/07/17 17:02 36.6 97 20 202/136 95 Room Air (Maria Elena Ortega PA-C) Physical Exam General Appearance: no apparent distress, + obese Eyes: normal inspection, PERRL ENT: hearing grossly normal Neck: supple Respiratory/Chest: lungs clear, normal breath sounds, no respiratory distress, no accessory muscle use Cardiovascular: regular rate, rhythm Abdomen: normal bowel sounds, non tender, soft, + tenderness (L CVA ) Extremities: no pedal edema, no calf tenderness Neurologic/Psychiatric: alert, normal mood/affect, oriented x 3 Skin: normal color, warm/dry, no rash (Maria Elena Ortega, YOEL) Laboratory Results Last 24 Hours Test 09/07/17 17:21 09/07/17 17:25 09/07/17 23:06 09/07/17 23:15 White Blood Count 11.42 K/uL Red Blood Count 5.03 M/uL Hemoglobin 14.6 g/dL Hematocrit 42.8 % Mean Corpuscular Volume 85.1 fL Mean Corpuscular Hemoglobin 29.0 pg Mean Corpuscular Hemoglobin Concent 34.1 g/dl Platelet Count 297 K/uL Mean Platelet Volume 10.1 fL Neutrophils (%) (Auto) 67.8 % Lymphocytes (%) (Auto) 21.9 % Monocytes (%) (Auto) 7.9 % Eosinophils (%) (Auto) 1.8 % Basophils (%) (Auto) 0.2 % Neutrophils # (Auto) 7.74 K/uL Lymphocytes # (Auto) 2.50 K/uL Monocytes # (Auto) 0.90 K/uL Eosinophils # (Auto) 0.21 K/uL Basophils # (Auto) 0.02 K/uL RDW Standard Deviation 42.0 fL RDW Coefficient of Variation 13.5 % Immature Granulocyte % (Auto) 0.4 % Immature Granulocyte # (Auto) 0.05 K/uL Prothrombin Time 10.0 SECONDS Prothromb Time International Ratio 1.0 Activated Partial Thromboplast Time 24.5 SECONDS Partial Thromboplastin Ratio 0.9 Sodium Level 136 mmol/L Potassium Level 4.0 mmol/L Chloride Level 102 mmol/L Carbon Dioxide Level 27 mmol/L Anion Gap 7.0 mmol/L Blood Urea Nitrogen 15 mg/dl Creatinine 1.33 mg/dl Est Creatinine Clear Calc Drug Dose 57.3 ml/min Estimated GFR () 50.9 Estimated GFR (Non- 44.0 BUN/Creatinine Ratio 11.2 Random Glucose 117 mg/dl Calcium Level 9.3 mg/dl Total Bilirubin 0.4 mg/dl Direct Bilirubin 0.1 mg/dl Aspartate Amino Transf (AST/SGOT) 19 U/L Alanine Aminotransferase (ALT/SGPT) 25 U/L Alkaline Phosphatase 158 U/L Total Creatine Kinase 75 U/L Creatine Kinase MB 1.0 ng/ml Creatine Kinase MB Ratio 1.3 Total Protein 8.4 gm/dl Albumin 3.8 gm/dl Lipase 271 U/L Bedside D-Dimer > 450 ng/mlFEU Bedside Troponin I < 0.030 ng/ml Troponin I < 0.015 ng/ml Urine Color YELLOW Urine Appearance CLEAR Urine pH 6.5 Urine Specific [place] 1.043 Urine Protein NEG Urine Glucose (UA) NEG Urine Ketones NEG Urine Occult Blood TRACE Urine Nitrite NEG Urine Bilirubin NEG Urine Urobilinogen NEG Urine Leukocyte Esterase SMALL Urine WBC (Auto) 10-30 /hpf Urine RBC (Auto) 5-10 /hpf Urine Hyaline Casts (Auto) 0 /lpf Urine Epithelial Cells (Auto) 10-20 /lpf Urine Bacteria (Auto) NEG Test 09/08/17 04:42 White Blood Count 11.32 K/uL Red Blood Count 4.49 M/uL Hemoglobin 12.9 g/dL Hematocrit 38.5 % Mean Corpuscular Volume 85.7 fL Mean Corpuscular Hemoglobin 28.7 pg Mean Corpuscular Hemoglobin Concent 33.5 g/dl RDW Standard Deviation 42.5 fL RDW Coefficient of Variation 13.7 % Platelet Count 235 K/uL Mean Platelet Volume 9.6 fL Sodium Level 136 mmol/L Potassium Level 4.2 mmol/L Chloride Level 108 mmol/L Carbon Dioxide Level 27 mmol/L Anion Gap 1.0 mmol/L Blood Urea Nitrogen 13 mg/dl Creatinine 1.23 mg/dl Est Creatinine Clear Calc Drug Dose 61.9 ml/min Estimated GFR () 56.0 Estimated GFR (Non- 48.3 BUN/Creatinine Ratio 10.2 Random Glucose 131 mg/dl Calcium Level 8.6 mg/dl Magnesium Level 1.7 mg/dl Troponin I < 0.015 ng/ml (Maria Elena Ortega, YOEL) Assessment and Plan 57 y/o F without any cardiovascular history. Developed severe L sided CP while sitting at her computer. The pain was largely at the L lower chest and radiated to the her back. She describes a pleuritic element, SOB and nausea. She denies vomiting or diaphoresis. She arrived in the ER and was sent for a CTA as a dissection and PE were in the differential. No PE or dissection were identified, however, she appears to have severe L sided hydronephrosis with an obstructing 8mm calculus. Initial EKG and troponin did not support a cardiac component to her symptoms. Mild JER and mild leukocytosis were present on labs which were otherwise normal. Obstructing calculus w/ resultant L hydronephrosis: - IV NSS @ 125 ml/hr - IV Dilaudid PRN for pain management - Urology consulted- planning for stent this afternoon Chest pain likely secondary to above- ACS r/o- RESOLVED: - Admitted to [facility] for cardiac monitoring- no acute events- transfer to med/ surg - Cardiac enzymes negative x3 Hypomagnesemia: Replace w/ IV Mag- follow and replace PRN Pulmonary nodules noted on CT: Recommend 3 month f/u JER secondary obstructing kidney stone w/ L hydro- RESOLVING: - Treatment as above - Follow PRP HTN, ?secondary to situational: - Continue to monitor - IV Hydralazine PRN Rosacea: Resume Bactrim at discharge DVT prophylaxis: TEDs/SCDs, ambulation Code status: LEVEL I, FULL Dispo: From home- no discharge needs anticipated- hopeful discharge in the next 1-2 days (Maria Elena Ortega ., PA-C) PA Physician Supervision Note: I interviewed and examined the patient. Discussed with Maria Elena Ortega PAC and agree with findings and plan as documented in the note. Any exceptions or clarifications are listed here: None 57 y/o F without any cardiovascular history was sent for a CTA as a dissection and PE found to have severe L sided hydronephrosis with an obstructing 8mm calculus. Initial EKG and troponin did not support a cardiac component to her symptoms. taken to cysto and stenting 09/08 *mm Obstructing calculus w/ resultant L hydronephrosis: - parenteral pain control, - Urology consulted- planning for stent 09/08 Chest pain likely secondary to above- ACS ruled out Hypomagnesemia: Replete Pulmonary nodules noted on CT: Recommend 3 month f/u pulmonary nodule program initiated JER secondary obstructing kidney stone w/ L hydro- improved with IVF Rosacea: Resume Bactrim at discharge held with JER DVT prophylaxis: TEDs/SCDs, ambulation Documented By: Hernan Hernandez (Hernan Hernandez M.D.)
[2017-09-08] MEDS ORDERED: EpHEDrine SULFATE INJ 50 MG/ML AMP IV PRN (14:00)
[2017-09-08] MEDS ORDERED: ATROPINE SULFATE 0.1 MG/ML 5ML SYR IV PRN (14:00)
[2017-09-08] MEDS ORDERED: FENTANYL CITRATE INJ 50 MCG/1 ML 2 ML VIAL ONE (14:14)
[2017-09-08] MEDS ORDERED: MIDAZOLAM HCL 1 MG/ML 2ML VIAL ONE (14:14)
[2017-09-08] MEDS ORDERED: Cysto-Conray II 17.2% 250ML BOTTLE ONE (14:16)
--- NOTE | 2017-09-08 14:44 | [facility] Operative Report ---
Operative Report Operative Date Sep 08, 2017. Pre-Operative Diagnosis Left Stone Post-Operative Diagnosis Same Procedure(s) Performed Cystoscopy, Left Stent and retrograde. Surgeon Juan Estimated Blood Loss Minimal Findings Large left obstructing stone. Drains 6 Fr Multilength Anesthesia Type MAC Complication(s) none Disposition Recovery Room / PACU Indications Large obstructing left stone with renal colic. Risks and benefits discussed with patient. Description of Procedure Patient was consented and brought back to the operating room. Patient was placed under anesthesia in the supine position and moved to the dorsal lithotomy position. Patient was prepped and draped in the regular sterile fashion. A time out was completed. A 30degree Cystoscope was placed into the bladder and the entire bladder was examined. The UO's were identified. The left side was cannulized with a catheter and a retrograde pyelogram was completed. A wire was then placed. With the wire in place, a 6 Fr Double J stent was placed. It was confirmed with fluoroscopy. With the stent in place, the bladder was emptied. The scope was removed. The patient was cleaned, aroused from anesthesia, and transferred to the pacu in stable condition having tolerated the procedure well with no complications. I was present and participated in all aspects of the procedure. The patient will be monitored in the PACU until transferred. I attest to the content of the Intraoperative Record and any orders documented therein. Any exceptions are noted below.
[2017-09-08] MEDS ORDERED: LIDOCAINE HCL 2% 2 ML VIAL (20MG/ML) ONE (14:45)
[2017-09-08] MEDS ORDERED: PROPOFOL IV EMULSION 10 MG/ML 20 ML VIAL ONE (14:45)
[2017-09-08] MEDS ORDERED: ONDANSETRON INJ 2 MG/ML 2 ML VIAL ONE (14:45)
--- NOTE | 2017-09-08 15:08 | DIAGNOSTIC IMAGING REPORT ---
RETROGRADE INCLUDES KUB HISTORY: 57 years-old Female LT STENT left ureteral stent with left ureteral calculus COMPARISON: CT abdomen and pelvis 09/07/2017, KUB 09/08/2017 TECHNIQUE: 4 spot fluoroscopic images of the left abdomen and pelvis were obtained utilizing 40.6 seconds fluoroscopy time FINDINGS: First image demonstrates a left sided ureteroscope in place. Subsequent images demonstrate a guidewire within the left ureter with subsequent placement of a double-J left ureteral stent which appears in satisfactory positioning. The previously described left distal ureteral calculus is not well seen on these images. IMPRESSION: Fluoroscopic assistance as above. Please see procedural report for further details. The above report was generated using voice recognition software. It may contain grammatical, syntax or spelling errors. Electronically signed by: Lonnie Villatoro M.D. 09/08/2017 3:07 PM Dictated Date/Time: 09/08/2017 3:03 PM
--- NOTE | 2017-09-08 15:42 | Anesthesiology Progress Note ---
Anesthesia Post Op Note Date & Time Sep 08, 2017 at 15:42 Vital Signs Pain Intensity: 0 Vital Signs Past 12 Hours Date Time Temp Pulse Resp B/P (MAP) Pulse Ox O2 Delivery O2 Flow Rate FiO2 09/08/17 15:40 36.5 108 18 163/98 (119) 95 Room Air 09/08/17 15:20 100 16 159/94 98 Nasal Cannula 3 09/08/17 15:10 36.2 103 16 154/84 98 Nasal Cannula 3 09/08/17 15:00 110 16 161/96 98 Oxymask 5 09/08/17 14:51 36.1 110 16 146/108 96 Oxymask 5 09/08/17 14:28 36.9 91 16 95 09/08/17 12:00 36.9 16 138/88 (105) 95 Room Air 09/08/17 12:00 Room Air 09/08/17 08:33 36.5 91 19 143/84 (103) 94 Room Air 09/08/17 08:20 Room Air 09/08/17 04:00 Room Air 09/08/17 04:00 36.7 80 18 144/93 (110) 94 Room Air Notes Mental Status: alert / awake / arousable, participated in evaluation Pt Amnestic to Procedure: Yes Nausea / Vomiting: adequately controlled Pain: adequately controlled Airway Patency, RR, SpO2: stable & adequate BP & HR: stable & adequate Hydration State: stable & adequate Anesthetic Complications: no major complications apparent
[2017-09-08] MEDS: HydrALAZINE HCL 20 MG/ML VIAL IV. PRN (16:46)
[2017-09-08] MEDS: ACETAMINOPHEN 325 MG TAB PO PRN (18:04)
[2017-09-09] MEDS: ACETAMINOPHEN 325 MG TAB PO PRN ×2 (00:10→05:25)
[2017-09-09 03:23] VITALS: BP 136/85; PULSE 95; TEMP 36.7; O2SAT 92
[2017-09-09 06:25] LABS: HEMATOCRIT 39.5 % (37-47); HEMOGLOBIN 13.1 g/dL (12.0-16.0); MEAN CELL VOLUME 86.4 fL (80-100); MEAN CORPUSCULAR HEMOGLOBIN 28.7 pg (25-34); MEAN CORPUSCULAR HGB CONC 33.2 g/dl (32-36); MEAN PLATELET VOLUME 9.8 fL (7.4-10.4); PLATELET COUNT 263 K/uL (130-400); RED CELL DISTRIBUTION WIDTH CV 13.9 % (11.5-14.5); RED CELL DISTRIBUTION WIDTH SD 44.1 fL (36.4-46.3); WHITE BLOOD COUNT 11.94 K/uL (4.8-10.8)
[2017-09-09 06:52] LABS: CALCIUM 8.8 mg/dl (8.5-10.1); CREATININE 1.16 mg/dl (0.60-1.20)
--- NOTE | 2017-09-09 07:35 | Anesthesiology Progress Note ---
Anesthesia Post Op Note Date & Time September 09, 2017 at 07:35 Vital Signs Pain Intensity: 2 Vital Signs Past 12 Hours Date Time Temp Pulse Resp B/P (MAP) Pulse Ox O2 Delivery O2 Flow Rate FiO2 09/09/17 03:23 36.7 95 15 136/85 (102) 92 Room Air 09/08/17 23:05 Room Air 09/08/17 23:00 36.7 100 20 133/85 (101) 94 Room Air Notes Mental Status: alert / awake / arousable Pt Amnestic to Procedure: Yes Nausea / Vomiting: improving with treatment Pain: adequately controlled Airway Patency, RR, SpO2: stable & adequate BP & HR: stable & adequate Hydration State: stable & adequate
--- NOTE | 2017-09-09 08:12 | Discharge Instructions ---
Discharge Instructions Date of Service September 09, 2017. Admission Reason for Admission: Chest Pain, Ureteral Calculus Discharge Discharge Diagnosis / Problem: left renal colic Discharge Goals Goal(s): Diagnostic testing, Therapeutic intervention Activity Recommendations Activity Limitations: as noted below . Current Hospital Diet Patient's current hospital diet: AHA Diet (Heart Healthy) Discharge Diet Recommended Diet: Regular Diet Procedures Procedures Performed: Cystoscopy, Left Stent and retrograde. Pending Studies Studies pending at discharge: no Medical Emergencies . Who to Call and When: Medical Emergencies: If at any time you feel your situation is an emergency, please call 911 immediately. . Non-Emergent Contact Non-Emergency issues call your: Primary Care Provider Call Non-Emergent contact if: temperature is above 101, your pain is unusual for you . . "Provider Documentation" section prepared by Hernan Hernandez. .
--- NOTE | 2017-09-09 08:12 | Progress Note ---
Subjective Date of Service: September 09, 2017. Subjective Pt evaluation today including: conversation w/ patient, chart review, lab review Voiding: no voiding problems 57 yo female s/p left ureteral stent placement. Pt reports she feels better today than prior to surgery. She did note some n/v yesterday evening, but denies any this morning and appetite has improved. + dysuria and hematuria. Problem List Medical Problems: (1) Chest pain Status: Acute (2) Hydronephrosis Status: Acute (3) Ureteral calculus Status: Acute Review of Systems Constitutional: No fever, No chills Respiratory: No shortness of breath Cardiac: No chest pain Abdomen: No pain, No nausea, No vomiting Female : + dysuria, + hematuria Heme: No abnormal bleeding/bruising Objective Vital Signs Date Time Temp Pulse Resp B/P (MAP) Pulse Ox O2 Delivery O2 Flow Rate FiO2 09/09/17 03:23 36.7 95 15 136/85 (102) 92 Room Air 09/08/17 23:05 Room Air 09/08/17 23:00 36.7 100 20 133/85 (101) 94 Room Air 09/08/17 18:49 36.6 91 18 146/95 (112) 96 Room Air 09/08/17 17:45 36.5 110 18 141/82 (101) 92 Room Air 09/08/17 16:39 36.8 110 16 167/92 (117) 92 Room Air 92 09/08/17 16:10 36.8 98 18 155/108 (124) 95 Room Air 09/08/17 16:06 Room Air 09/08/17 15:40 36.5 108 18 163/98 (119) 95 Room Air 09/08/17 15:40 Room Air 09/08/17 15:20 100 16 159/94 98 Nasal Cannula 3 09/08/17 15:10 36.2 103 16 154/84 98 Nasal Cannula 3 09/08/17 15:00 110 16 161/96 98 Oxymask 5 09/08/17 14:51 36.1 110 16 146/108 96 Oxymask 5 09/08/17 14:28 36.9 91 16 95 09/08/17 12:00 36.9 16 138/88 (105) 95 Room Air 09/08/17 12:00 Room Air 4/30/18 08:33 36.5 91 19 143/84 (103 94 Room Air 09/08/17 08:20 Room Air Physical Exam General Appearance: no apparent distress, + obese Eyes: normal inspection ENT: hearing grossly normal Neck: no JVD Respiratory/Chest: no respiratory distress, no accessory muscle use Cardiovascular: no JVD Extremities: normal inspection Neurologic/Psychiatric: alert, normal mood/affect, oriented x 3 Skin: normal color Laboratory Results Last 24 Hours Test 09/09/17 06:02 White Blood Count 11.94 K/uL Red Blood Count 4.57 M/uL Hemoglobin 13.1 g/dL Hematocrit 39.5 % Mean Corpuscular Volume 86.4 fL Mean Corpuscular Hemoglobin 28.7 pg Mean Corpuscular Hemoglobin Concent 33.2 g/dl RDW Standard Deviation 44.1 fL RDW Coefficient of Variation 13.9 % Platelet Count 263 K/uL Mean Platelet Volume 9.8 fL Sodium Level 138 mmol/L Potassium Level 4.0 mmol/L Chloride Level 106 mmol/L Carbon Dioxide Level 27 mmol/L Anion Gap 5.0 mmol/L Blood Urea Nitrogen 10 mg/dl Creatinine 1.16 mg/dl Est Creatinine Clear Calc Drug Dose 65.6 ml/min Estimated GFR () 60.1 Estimated GFR (Non- 51.9 BUN/Creatinine Ratio 9.0 Random Glucose 125 mg/dl Calcium Level 8.8 mg/dl Assessment and Plan POD #1 s/p left ureteral stent placement for left ureteral stone AFVSS. Pain improved. Pt OK for d/c home from perspective. Recommend d/c home on oral pain medication, Pyridium, and Bactrim DS BID x 5 days. Will arrange for outpatient f/u in the next week with Dr. Martinez to discuss definitive stone management. No further management at this time. Thanks for allowing us to participate in this pt's care.
[2017-09-09] MEDS ORDERED: PHENAZOPYRIDINE HCL 200 MG TAB PO PRN (08:15)
[2017-09-09 08:50] VITALS: BP 145/86; PULSE 98; TEMP 36.6; O2SAT 93
[2017-09-09] MEDS ORDERED: SULF800T23 PO (09:37)
[2017-09-09] MEDS ORDERED: OXYC-643 PO ×2 (09:37→11:12)
[2017-09-09] MEDS ORDERED: PHEN-774 PO (09:37)
[2017-09-09 11:51] VITALS: BP 145/86; PULSE 98; TEMP 36.6; O2SAT 93
--- NOTE | 2017-09-09 17:49 | Discharge Summary ---
Discharge Summary Date of Service September 09, 2017. Discharge Summary Admission Date: Sep 07, 2017 at 21:31 Discharge Date: September 09, 2017 Discharge Disposition: Home Principal Diagnosis: Renal colic Immunizations: Have You Had Influenza Vaccine: No History of Tetanus Vaccine?: Unknown History of Pneumococcal: No History of Hepatitis B Vaccine: Unknown Consultations: [facility] urology Medication Reconciliation New Medications: Oxycodone/Acetaminophen 5MG/325MG (Oxycodone/Acetaminophen 5MG/325MG) 1 Tab Tab 1 TABLET PO Q6H, #14 TAB . Phenazopyridine Hcl (Pyridium) 100 Mg Tab 1 TAB PO TID for 3 Days, #9 TAB Changed Medications: Sulfa/Trimethoprim (Bactrim Ds 800MG/160MG) Tab 1 TAB PO DAILY, #10 TAB (Changed from: 6; Removed Instructions) Continued Medications: Ibuprofen (Motrin) 800 Mg Tab 800 MG PO Q8H PRN for Pain, TAB Multiple Vitamins W/ Minerals (Multivitamin Women) 1 Tab Tab 1 TAB PO DAILY Discharge Exam Review of Systems: Constitutional: No fever, No chills, No weakness Genitourinary - Female: No urinary frequency, No urinary urgency Physical Exam: General Appearance: WD/WN, no apparent distress Neurologic/Psychiatric: alert, oriented x 3 Skin: normal color, warm/dry Hospital Course 57 y/o F without any cardiovascular history was sent for a CTA as a dissection and PE found to have severe L sided hydronephrosis with an obstructing 8mm calculus. Initial EKG and troponin did not support a cardiac component to her symptoms. taken to cysto and stenting 09/08 8mm Obstructing calculus w/ resultant L hydronephrosis: - Urology place stent 09/08 will discharge on Bactrim Pyridium and oxycodone with urology follow-up as an outpatient Chest pain likely secondary to above- ACS ruled out Hypomagnesemia: Replete Pulmonary nodules noted on CT: Recommend 3 month f/u pulmonary nodule program initiated JER secondary obstructing kidney stone w/ L hydro-resolved Rosacea: Resume Bactrim after 5 day treatment for urinary symptoms can return to her normal dosing of Bactrim as needed for rosacea Documented By: Hernan Hernandez Total Time Spent: Greater than 30 minutes This includes examination of the patient, discharge planning, medication reconciliation, and communication with other providers. Discharge Instructions Please refer to the electronic Patient Visit Report (Discharge Instructions) for additional information.
== END 2017-09-09 12:15 | disposition home or self-care (01) ==
LOC: C.EDB 17:02 → C.2T 21:31 → INTOOBSV 21:31 → ENRESERV 21:41 → EDBEDREQ 21:55 → EDBEDREQSVC 09-08 13:38 → ENRESERV 09-08 13:58 → C.MSW 09-08 15:44
PROVIDERS: ADMIT Internal Medicine; ATTEND Internal Medicine
DX: N13.2 Hydronephrosis with renal and ureteral calculous obstruction (principal); N23 Unspecified renal colic; Z79.899 Other long term (current) drug therapy; Z88.0 Allergy status to penicillin; Z90.710 Acquired absence of both cervix and uterus; Z87.891 Personal history of nicotine dependence; E66.9 Obesity, unspecified; Z68.41 Body mass index [BMI] 40.0-44.9, adult

== ENCOUNTER → 2017-09-19 | Outpatient (CLI) | payer OTHER ==
[~2017-09-19] MED LIST changes: -DXY100 PO; -IBUP-1050 PO; +IBUP-1428 PO; +MULT-1019 PO; +OXYC-643 PO; -RANI75TA7 PO; +SULF800T23 PO
--- NOTE | 2017-09-19 09:07 | DIAGNOSTIC IMAGING REPORT ---
Thyroid ultrasonography CLINICAL HISTORY: E04.2 Multiple thyroid [id number] COMPARISON STUDY: 03/25/2011 FINDINGS: The right lobe of thyroid measures 6.3 x 2.6 x 1.7 cm. There are multiple cystic and spongiform nodules present. The largest nodule is a 17 mm upper pole cystic nodule. The left lobe measures 5.7 x 2.1 x 2.1 cm. There are multiple cystic spongiform and hypoechoic nodules. The 2 largest nodules on the left are a cystic 18 mm mid pole nodule, and complex 14 x 15 x 18 mm lower pole nodule. If a nodule sampling is desired, the complex lower pole left lobe nodule would be considered the most appropriate nodule to sample. IMPRESSION: Multinodular thyroid gland. Interval increase in the size and number of the multiple bilateral nodules. Electronically signed by: London Florentino M.D. 09/19/2017 9:06 AM Dictated Date/Time: 09/19/2017 8:42 AM
== END | disposition home or self-care (01) ==
LOC: C.ULTR 08:02
PROVIDERS: ATTEND Physician Assistant Medical
DX: E04.2 Nontoxic multinodular goiter (principal)

== ENCOUNTER → 2017-09-30 | Day surgery (SDC) | payer OTHER ==
[2017-09-24 10:14] VITALS: BMI 43.0
[~2017-09-30] VITALS: Ht 162.6 cm; Wt 114.4 kg
[~2017-09-30] MED LIST changes: +ACET-1311 PO; +ATROPINE SULFATE 0.1 MG/ML 5ML SYR IV PRN; +CHECK SCOPOLAMINE PATCH PLACEMENT SCH; +CIPR-255 PO; +CIPROFLOXACIN / D5W 400 MG IV SCH; +Cysto-Conray II 17.2% 250ML BOTTLE ONE; +DEXAMETHASONE SOD INJ 4 MG/ML VIAL ONE; +EpHEDrine SULFATE INJ 50 MG/ML AMP IV PRN; +FENTANYL CITRATE INJ 50 MCG/1 ML 2 ML VIAL IV PRN; +FENTANYL CITRATE INJ 50 MCG/1 ML 2 ML VIAL ONE; +HYDROmorphone INJ 0.5 MG/0.5 ML SYR IV PRN; +KETOROLAC TROMETHAMINE 30 MG/ML VIAL ONE; +LABETALOL HCL IV 5 MG/ML 20ML IV PRN; +LABETALOL HCL IV 5 MG/ML 20ML ONE; +LACTATED RINGER'S 1000ML 1,000 ML IV SCH; +LIDOCAINE HCL 2% 2 ML VIAL (20MG/ML) ONE; +MIDAZOLAM HCL 1 MG/ML 2ML VIAL ONE; +ONDANSETRON INJ 2 MG/ML 2 ML VIAL IV PRN; +ONDANSETRON INJ 2 MG/ML 2 ML VIAL ONE; +OXYC7.5T65 PO; +OXYCODONE/ACETAMINOPHEN 7.5-325 TAB PO PRN; +PHEN-876 PO; +PHENYLEPHRINE 100MCG/ML 5ML SYR IV PRN; +PROMETHAZINE HCL INJ 12.5 MG in SODIUM CHLORIDE 0.9% 50ML 50 ML IV PRN; +PROPOFOL IV EMULSION 10 MG/ML 20 ML VIAL ONE; +SCOPOLAMINE 1.5 MG TDSY TD ONE; +SCOPOLAMINE 1.5 MG TDSY TD SCH; +TAMS0.4C38 PO
[2017-09-30 11:15] VITALS: BP 163/78; PULSE 100; TEMP 36.7; O2SAT 97; Ht 162.6 cm; Wt 114.4 kg
--- NOTE | 2017-09-30 11:47 | History & Physical Bridge Note ---
H&P Re-Evaluation Bridge Note: I have examined the patient, reviewed the History & Physical and in the interval since the performance of the History & Physical I have noted the following changes of clinical significance: No changes noted
--- NOTE | 2017-09-30 11:49 | Discharge Instructions ---
Discharge Instructions Date of Service September 30, 2017. Admission Reason for Admission: Stones Discharge Discharge Diagnosis / Problem: Stone, left Discharge Goals Goal(s): Decrease discomfort, Improve function Activity Recommendations Activity Limitations: resume your previous activity Lifting Limitations: gradually increase as tolerated Exercise/Sports Limitations: gradually increase as tolerated . Instructions / Follow-Up Instructions / Follow-Up May have discomfort in flank or groin. Call if any fevers or chills. May have blood in urine. Current Hospital Diet Patient's current hospital diet: Discharge Diet Recommended Diet: Regular Diet Procedures Procedures Performed: Cystoscopy, Left URS and laser lithotripsy Pending Studies Studies pending at discharge: no Medical Emergencies . Who to Call and When: Medical Emergencies: If at any time you feel your situation is an emergency, please call 911 immediately. . Non-Emergent Contact Non-Emergency issues call your: Primary Care Provider, Urologist Call Non-Emergent contact if: you have a fever, temperature is above 101, temperature is above 101.5, your pain is not controlled, your pain is worsening , your pain is unusual for you . . "Provider Documentation" section prepared by Jignesh Martinez. .
--- NOTE | 2017-09-30 15:35 | [facility] Operative Report ---
Operative Report Operative Date September 30, 2017. Pre-Operative Diagnosis Left Ureteral Stone Post-Operative Diagnosis Same Procedure(s) Performed Cystoscopy, Left Ureterpscopy, stone basket extraction, Retrograde pyelogram, stent exchange, and laser lithotripsy Surgeon Juan Estimated Blood Loss Minimal Findings Ureteral Stone Left. Specimens Stone Left Drains 6 Fr Multilength. Anesthesia Type General Complication(s) none Disposition Recovery Room / PACU Indications Obstructing stone. Risks and benefits discussed at length. Description of Procedure Patient was consented and brought back to the operating room. Patient was placed under anesthesia in the supine position and moved to the dorsal lithotomy position. Patient was prepped and draped in the regular sterile fashion. A time out was completed. A 30degree Cystoscope was placed into the bladder and the entire bladder was examined. The UO's were identified. The was grasped and partially removed and a wire placed. The stent was removed. A rigid ureteroscope was taken to the large mid ureteral stone. It was impacted into the wall. The stone was destroyed to dust and small fragments with the laser. Larger fragments were removed. The entire ureter up to the proximal ureter was cleared of stone debris. At this point, the wire was left in place and the scope removed. A catheter was placed over the wire and a retrograde pyelogram was completed. A second wire was then placed. A ureteral access sheath and safety wire was placed. The flexible ureteroscope was taken into the left ureter. The entire ureter and renal pelvis were examined. The stones were identified. A laser fiber was selected and the stones were pulverized to dust and small fragments. Larger fragments were grasped and removed and sent for analysis. The entire area was once again examined. No residual large fragments or areas of concern were noted. The scope was slowly removed with the wire left in place. Contrast was placed through the scope for a pyelogram to assist in stent placement. The entire ureter was examined as the scope was slowly removed. No obstructions or other areas of concern were noted. With the wire in place, a 6 Fr Double J stent was placed. It was confirmed with fluoroscopy. With the stent in place, the bladder was emptied. The scope was removed. The patient was cleaned, aroused from anesthesia, and transferred to the pacu in stable condition having tolerated the procedure well with no complications. I was present and participated in all aspects of the procedure. The patient will be monitored in the PACU until transferred. I attest to the content of the Intraoperative Record and any orders documented therein. Any exceptions are noted below.
--- NOTE | 2017-09-30 16:05 | DIAGNOSTIC IMAGING REPORT ---
RETROGRADE INCLUDES KUB CLINICAL HISTORY: 57 years-old Female presenting with LEFT LASER LITHOTRIPSY AND STENT EXCHANGE. TECHNIQUE: 2 fluoroscopic image(s) recorded as part of an intraoperative procedure. COMPARISON: 09/08/2017. FINDINGS/IMPRESSION: A left ureteral stent is in place. The left renal collecting system was opacified and not significantly distended. Please see surgical report for further details. Fluoroscopy dosage (mGy): 42.58. Fluoroscopy time: 136.5 seconds. Number of fluoroscopic spot images: 0. Electronically signed by: Rogelio Werner M.D. 09/30/2017 4:03 PM Dictated Date/Time: 09/30/2017 4:02 PM
--- NOTE | 2017-09-30 16:19 | Anesthesiology Progress Note ---
Anesthesia Post Op Note Date & Time September 30, 2017 at 16:18 Vital Signs Pain Intensity: 0 Vital Signs Past 12 Hours Date Time Temp Pulse Resp B/P (MAP) Pulse Ox O2 Delivery O2 Flow Rate FiO2 09/30/17 16:10 92 19 139/87 97 Oxymask 3 09/30/17 16:00 88 16 141/92 99 Oxymask 10 09/30/17 15:50 83 12 127/84 93 Oxymask 10 09/30/17 15:44 36.2 78 15 113/74 93 Oxymask 10 09/30/17 11:15 36.7 100 18 163/78 (106) 97 Room Air Notes Mental Status: alert / awake / arousable, participated in evaluation Pt Amnestic to Procedure: Yes Nausea / Vomiting: adequately controlled Pain: adequately controlled Airway Patency, RR, SpO2: stable & adequate BP & HR: stable & adequate Hydration State: stable & adequate Anesthetic Complications: no major complications apparent
[2017-09-30 16:30] VITALS: BP 131/79; PULSE 86; TEMP 36.7; O2SAT 94
[2017-09-30 17:00] VITALS: BP 127/84; PULSE 93; TEMP 36.7; O2SAT 94
== END | disposition home or self-care (01) ==
LOC: C.ACU 10:44
PROVIDERS: ATTEND Urology
DX: N20.1 Calculus of ureter (principal); E78.5 Hyperlipidemia, unspecified; E88.81 Metabolic syndrome and other insulin resistance; E06.3 Autoimmune thyroiditis; K21.9 Gastro-esophageal reflux disease without esophagitis; G47.33 Obstructive sleep apnea (adult) (pediatric); E66.9 Obesity, unspecified; Z90.710 Acquired absence of both cervix and uterus; Z80.3 Family history of malignant neoplasm of breast; Z82.49 Family history of ischemic heart disease and other diseases of the circulatory system; Z88.0 Allergy status to penicillin; Z87.442 Personal history of urinary calculi; Z87.891 Personal history of nicotine dependence

== ENCOUNTER → 2017-10-03 | Outpatient (CLI) | payer OTHER ==
[~2017-10-03] MED LIST changes: -ATROPINE SULFATE 0.1 MG/ML 5ML SYR IV PRN; -CHECK SCOPOLAMINE PATCH PLACEMENT SCH; -CIPROFLOXACIN / D5W 400 MG IV SCH; -Cysto-Conray II 17.2% 250ML BOTTLE ONE; -DEXAMETHASONE SOD INJ 4 MG/ML VIAL ONE; -EpHEDrine SULFATE INJ 50 MG/ML AMP IV PRN; -FENTANYL CITRATE INJ 50 MCG/1 ML 2 ML VIAL IV PRN; -FENTANYL CITRATE INJ 50 MCG/1 ML 2 ML VIAL ONE; -HYDROmorphone INJ 0.5 MG/0.5 ML SYR IV PRN; -KETOROLAC TROMETHAMINE 30 MG/ML VIAL ONE; -LABETALOL HCL IV 5 MG/ML 20ML IV PRN; -LABETALOL HCL IV 5 MG/ML 20ML ONE; -LACTATED RINGER'S 1000ML 1,000 ML IV SCH; -LIDOCAINE HCL 2% 2 ML VIAL (20MG/ML) ONE; -MIDAZOLAM HCL 1 MG/ML 2ML VIAL ONE; -ONDANSETRON INJ 2 MG/ML 2 ML VIAL IV PRN; -ONDANSETRON INJ 2 MG/ML 2 ML VIAL ONE; -OXYC-643 PO; -OXYCODONE/ACETAMINOPHEN 7.5-325 TAB PO PRN; -PHENYLEPHRINE 100MCG/ML 5ML SYR IV PRN; -PROMETHAZINE HCL INJ 12.5 MG in SODIUM CHLORIDE 0.9% 50ML 50 ML IV PRN; -PROPOFOL IV EMULSION 10 MG/ML 20 ML VIAL ONE; -SCOPOLAMINE 1.5 MG TDSY TD ONE; -SCOPOLAMINE 1.5 MG TDSY TD SCH
--- NOTE | 2017-10-03 13:52 | DIAGNOSTIC IMAGING REPORT ---
ULTRASOUND-GUIDED FINE-NEEDLE ASPIRATION OF A LEFT THYROID NODULE HISTORY: Left thyroid nodule. NON TOXIC MULTINODULAR GOITER COMPARISON: Thyroid ultrasound 09/19/2017. PROCEDURE: Written informed consent was obtained. The neck was prepped and draped in the usual sterile fashion. 1% lidocaine was used for local anesthesia. A total of 2 passes using a 25-gauge needle were made through dominant partially solid nodule within the left thyroid lobe under ultrasound guidance. Specimens were given to the on-site pathologist who determined adequate tissue for diagnosis. The patient tolerated the procedure well. There were no immediate locations. IMPRESSION: Successful ultrasound-guided fine-needle aspiration of a left thyroid nodule. Electronically signed by: Karthik Singleton M.D. 10/03/2017 1:50 PM Dictated Date/Time: 10/03/2017 1:50 PM
== END | disposition home or self-care (01) ==
LOC: C.ULTR 12:48
PROVIDERS: ATTEND Physician Assistant Medical
DX: E04.2 Nontoxic multinodular goiter (principal)

== ENCOUNTER → 2017-12-03 | Outpatient (CLI) | payer OTHER ==
[~2017-12-03] MED LIST changes: -TAMS0.4C38 PO
[2017-12-03 15:40] LABS: BASO % 0.2 %; BASO ABS # 0.02 K/uL (0-0.2); EOS % 2.4 %; EOS ABS # 0.29 K/uL (0-0.5); HEMATOCRIT 42.3 % (37-47); HEMOGLOBIN 13.9 g/dL (12.0-16.0); IG# 0.03 K/uL (0.00-0.02); LYMPH % 25.2 %; LYMPH ABS # 3.06 K/uL (1.2-3.4); MEAN CELL VOLUME 84.1 fL (80-100); MEAN CORPUSCULAR HEMOGLOBIN 27.6 pg (25-34); MEAN CORPUSCULAR HGB CONC 32.9 g/dl (32-36); MEAN PLATELET VOLUME 10.5 fL (7.4-10.4); MONO % 6.6 %; NEUT % 65.4 %; NEUT ABS # 7.93 K/uL (1.4-6.5); PLATELET COUNT 276 K/uL (130-400); RED CELL DISTRIBUTION WIDTH CV 13.7 % (11.5-14.5); RED CELL DISTRIBUTION WIDTH SD 41.8 fL (36.4-46.3); WHITE BLOOD COUNT 12.13 K/uL (4.8-10.8)
[2017-12-03 15:48] LABS: BLOOD UREA NITROGEN 11 mg/dl (7-18); CARBON DIOXIDE 26 mmol/L (21-32); CREATININE 1.09 mg/dl (0.60-1.20); POTASSIUM 3.8 mmol/L (3.5-5.1); SODIUM 137 mmol/L (136-145)
== END | disposition home or self-care (01) ==
LOC: C.LAB1850 14:17
PROVIDERS: ATTEND Urology
DX: N20.0 Calculus of kidney (principal)

== ENCOUNTER → 2017-12-10 | Outpatient (CLI) | payer OTHER ==
[~2017-12-10] MED LIST changes: -CIPR-255 PO; +OPTIRAY 320 IV PRN; -PHEN-876 PO
--- NOTE | 2017-12-10 10:50 | DIAGNOSTIC IMAGING REPORT ---
CT (CHEST) THORAX WITH CT DOSE: 650.43 mGycm HISTORY: Lung nodule R91.1 Pulmonary nodule3 month [id number] TECHNIQUE: Multiaxial CT images of the chest were performed following the intravenous administration of contrast. A dose lowering technique was utilized adhering to the principles of ALARA. COMPARISON: 09/07/2017 FINDINGS: No change in the prior study. Unaltered 9 mm nodule right lung base. This is best seen transaxial image 197. There is been no change in size or configuration. The outer margin remains somewhat irregular. Lungs otherwise appear clear. Mallory unchanging 5 mm calcified granuloma right middle lobe. No significant mediastinal or hilar adenopathy IMPRESSION: 1. 9 mm nodule right lung base considered unchanged. 2. Study is otherwise unremarkable with no additional nodularity. 3. Close CT follow-up is suggested given its irregular outer margin. Please refer to below summary of Fleischner criteria recommendations for follow-up of incidental CT nodules (Reva Donald, Guidelines for management of small pulmonary nodules detected on CT scans: A statement from the Fleischner Society, Radiology 237: [phone].) SOLID NODULES Solitary nodule size: <6 mm * low risk patients: no follow-up needed * high risk patients: optional CT at 12 months Solitary nodule size: 6-8 mm * low risk patients: follow-up at 6-12 months, then consider further follow-up at 18-24 months * high risk patients: initial follow-up CT at 6-12 months and then at 18-24 months if no change Solitary nodule size: >8 mm * either low or high risk patients - consider follow-up CT at 3 months, and/or CT-PET, and/or biopsy Multiple nodules size: <6 mm * low risk patients: no routine follow-up * high risk patients: optional CT at 12 months Multiple nodules size: 6-8 mm * low risk patients: follow-up at 3-6 months, then consider further follow-up at 18-24 months * high risk patients: follow-up at 3-6 months, then at 18-24 months if no change Multiple nodules size: >8 mm * low risk patients: follow-up at 3-6 months, then consider further follow-up at 18-24 months * high risk patients: follow-up at 3-6 months, then at 18-24 months if no change Note: newly detected indeterminate nodule in persons 35 years of age or older. * low risk patients: minimal or absent history of smoking and/or other known risk factors * high risk patients: history of smoking or of other known risk factors (e.g. first degree relative with lung cancer, or exposure to asbestos, radon, uranium) * if a nodule up to 8 mm is partly solid or is ground glass further follow-up is required after 24 months to exclude possible slow growing adenocarcinoma (HIGINIO) SUBSOLID NODULES Solitary pure ground-glass nodule * nodule size <6 mm - no CT follow-up required * nodule size >=6 mm - follow-up CT at 6-12 months, then every 2 years until 5 years Solitary part-solid nodule * nodule size <6 mm - no CT follow-up required * nodule size >=6 mm - follow-up CT at 3-6 months. If unchanged, and solid component remains <6 mm, then annual follow-up for 5 years Multiple subsolid nodules * nodule size <6 mm - follow-up CT at 3-6 months, consider further follow-up at 2 and 4 years if stable * nodule size >=6 mm - follow-up CT at 3-6 months, subsequent management based on the most suspicious nodule(s) The above report was generated using voice recognition software. It may contain grammatical, syntax or spelling errors. Electronically signed by: Luis Parra M.D. 12/10/2017 10:49 AM Dictated Date/Time: 12/10/2017 10:43 AM
== END | disposition home or self-care (01) ==
LOC: C.CTS 10:24
PROVIDERS: ATTEND Internal Medicine
DX: R91.1 Solitary pulmonary nodule (principal)

== ENCOUNTER → 2017-12-11 | Outpatient (CLI) | payer OTHER ==
[~2017-12-11] MED LIST changes: -OPTIRAY 320 IV PRN
--- NOTE | 2017-12-11 16:41 | DIAGNOSTIC IMAGING REPORT ---
KUB CLINICAL HISTORY: N20.0 KIDNEY STONE COMPARISON STUDY: 11/19/2017 FINDINGS: There are multiple bilateral renal calculi. The largest is located within the lower pole the right kidney measuring 6 mm. Calcifications at the L4 level, likely represent phleboliths. No definite ureteral calculi are visualized. IMPRESSION: 1. Bilateral nephrolithiasis 2. No evidence of pathologic bowel dilatation Electronically signed by: London Florentino M.D. 12/11/2017 4:40 PM Dictated Date/Time: 12/11/2017 4:38 PM
== END | disposition home or self-care (01) ==
LOC: C.RAD1850 16:30
PROVIDERS: ATTEND Urology
DX: N20.0 Calculus of kidney (principal)

== ENCOUNTER → 2017-12-12 | Day surgery (SDC) | payer OTHER ==
[2017-12-05 15:27] VITALS: Ht 162.6 cm; Wt 113.6 kg
[~2017-12-12] VITALS: Ht 162.6 cm; Wt 113.6 kg
[~2017-12-12] MED LIST changes: +ATROPINE SULFATE 0.1 MG/ML 5ML SYR IV PRN; +CIPROFLOXACIN 400MG / D5W IV SCH; +DEXAMETHASONE SOD INJ 4 MG/ML VIAL ONE; +EpHEDrine SULFATE INJ 50 MG/ML AMP IV PRN; +FENTANYL CITRATE INJ 50 MCG/1 ML 2 ML VIAL IV PRN; +FENTANYL CITRATE INJ 50 MCG/1 ML 2 ML VIAL ONE; +FLUMAZENIL 0.1 MG/1 ML 10 ML VIAL IV PRN; +LABETALOL HCL IV 5 MG/ML 20ML IV PRN; +LACTATED RINGER'S 1000ML 1,000 ML IV SCH; +LIDOCAINE HCL 2% 2 ML VIAL (20MG/ML) ONE; +MIDAZOLAM HCL 1 MG/ML 2ML VIAL ONE; +NALOXONE HCL 0.4 MG/1 ML VIAL/CARP IV PRN; +ONDANSETRON INJ 2 MG/ML 2 ML VIAL IV PRN; +ONDANSETRON INJ 2 MG/ML 2 ML VIAL ONE; +PROMETHAZINE HCL INJ 12.5 MG in SODIUM CHLORIDE 0.9% 50ML 50 ML IV PRN; +PROPOFOL IV EMULSION 10 MG/ML 20 ML VIAL ONE
--- NOTE | 2017-12-12 10:28 | [facility] Post Operative Brief Note ---
Immediate Operative Summary Operative Date Dec 12, 2017. Pre-Operative Diagnosis Right Kidney stone Post-Operative Diagnosis Same as pre-op Procedure(s) Performed Right Kidney Extracorporeal Shock Wave Lithotripsy Surgeon Dr. Colbert [employer] Engineering Technician Surgeon(s) None Estimated Blood Loss Zero Findings Consistent with Post-Op Diagnosis Specimens None Anesthesia Type General
--- NOTE | 2017-12-12 10:32 | Discharge Instructions-SurgCtr ---
Discharge Instructions Date of Service Dec 12, 2017. Visit Reason for Visit: Stones Discharge Discharge Diagnosis / Problem: post op r eswl Discharge Goals Goal(s): Decrease discomfort, Improve disease control Medications Stopped Medications Name(s): Ibuprofen Last dose 2 weeks ago Activity Recommendations Activity Limitations: per Instructions/Follow-up section (no driving on narcotics) Anesthesia . Post Anesthesia Instructions: If you have had General Anesthesia or IV Sedation: * Do not drive today. * Resume driving when surgeon permits. * Do not make important decisions or sign legal documents today. * Call surgeon for: 1. Temperature elevations greater than 101 degrees F. 2. Uncontrollable pain. 3. Excessive bleeding. 4. Persistent nausea and vomiting. 5. Medication intolerance (nausea, vomiting or rash). * For nausea and vomiting use only clear liquids such as: tea, soda, bouillon until nausea subsides, then gradually increase diet as tolerated. * If you have any concerns or questions, call your surgeon's office. If physician is unavailable and it is an emergency, call 911 or go to the nearest emergency room. . Diet Recommendations Home Diet: resume previous diet Procedures Procedures Performed: Right Kidney Extracorporeal Shock Wave Lithotripsy Pending Studies Studies pending at discharge: no Medical Emergencies . Who to Call and When: Medical Emergencies: If at any time you feel your situation is an emergency, please call 911 immediately. . Non-Emergent Contact Non-Emergency issues call your: Urologist . . "Provider Documentation" section prepared by Aryan Colbert. .
--- NOTE | 2017-12-12 11:09 | Anesthesia Progress Nt - [facility] ---
Anesthesia Post Op Note Date & Time Dec 12, 2017 at 11:09 Vital Signs Pain Intensity: 0 Vital Signs Past 12 Hours Date Time Temp Pulse Resp B/P (MAP) Pulse Ox O2 Delivery O2 Flow Rate FiO2 12/12/17 11:01 141/93 12/12/17 11:01 36.8 82 14 141/93 94 Room Air 12/12/17 11:00 80 10 12/12/17 11:00 79 10 94 12/12/17 10:56 132/76 12/12/17 10:55 87 15 95 12/12/17 10:55 87 15 12/12/17 10:51 146/73 12/12/17 10:50 91 14 12/12/17 10:50 89 14 98 12/12/17 10:46 119/74 12/12/17 10:45 100 15 12/12/17 10:45 98 15 96 12/12/17 10:41 123/83 12/12/17 10:40 103 14 98 12/12/17 10:40 103 14 12/12/17 10:37 142/110 12/12/17 10:35 36.1 100 12 123/83 98 Mask 5 12/12/17 07:03 36.4 83 18 135/85 (102) 95 Room Air Notes Mental Status: alert / awake / arousable, participated in evaluation Pt Amnestic to Procedure: Yes Nausea / Vomiting: adequately controlled Pain: adequately controlled Airway Patency, RR, SpO2: stable & adequate BP & HR: stable & adequate Hydration State: stable & adequate Anesthetic Complications: no major complications apparent
[2017-12-12 11:15] VITALS: TEMP 36.6
[2017-12-12 11:46] VITALS: BP 135/88; PULSE 87; O2SAT 97
--- NOTE | 2017-12-15 19:11 | OPERATIVE REPORT ---
DATE OF OPERATION: 12/12/2017 PREOPERATIVE DIAGNOSIS: Right ureteropelvic junction stone. POSTOPERATIVE DIAGNOSIS: Right ureteropelvic junction stone. PROCEDURE PERFORMED: Right renal extracorporeal shockwave lithotripsy. SURGEON: Aryan Colbert M.D. ANESTHESIA: General. INDICATIONS: The patient is a 57-year-old female with right UPJ stone, here for lithotripsy. DESCRIPTION OF THE PROCEDURE: The patient was taken to the lithotripsy suite after preoperative antibiotics were given and after Venodyne stockings placed, she was taken to the OR and given general anesthesia. Stone was approximately 7 x 7 mm and it was visualized in two views. The patient received 2500 shocks, the majority at level 5. At the end of the procedure, the patient was taken to the recovery room in stable condition. I attest to the content of the Intraoperative Record and any orders documented therein. Any exception s are noted below.
== END | disposition home or self-care (01) ==
LOC: X.SURG 06:30
PROVIDERS: ATTEND Urology
DX: N20.1 Calculus of ureter (principal); J44.9 Chronic obstructive pulmonary disease, unspecified; K21.9 Gastro-esophageal reflux disease without esophagitis; E66.9 Obesity, unspecified; Z68.41 Body mass index [BMI] 40.0-44.9, adult; Z88.0 Allergy status to penicillin

== ENCOUNTER → 2017-12-25 | Outpatient (CLI) | payer OTHER ==
[~2017-12-25] MED LIST changes: -ATROPINE SULFATE 0.1 MG/ML 5ML SYR IV PRN; -CIPROFLOXACIN 400MG / D5W IV SCH; -DEXAMETHASONE SOD INJ 4 MG/ML VIAL ONE; -EpHEDrine SULFATE INJ 50 MG/ML AMP IV PRN; -FENTANYL CITRATE INJ 50 MCG/1 ML 2 ML VIAL IV PRN; -FENTANYL CITRATE INJ 50 MCG/1 ML 2 ML VIAL ONE; -FLUMAZENIL 0.1 MG/1 ML 10 ML VIAL IV PRN; -LABETALOL HCL IV 5 MG/ML 20ML IV PRN; -LACTATED RINGER'S 1000ML 1,000 ML IV SCH; -LIDOCAINE HCL 2% 2 ML VIAL (20MG/ML) ONE; -MIDAZOLAM HCL 1 MG/ML 2ML VIAL ONE; -NALOXONE HCL 0.4 MG/1 ML VIAL/CARP IV PRN; -ONDANSETRON INJ 2 MG/ML 2 ML VIAL IV PRN; -ONDANSETRON INJ 2 MG/ML 2 ML VIAL ONE; -PROMETHAZINE HCL INJ 12.5 MG in SODIUM CHLORIDE 0.9% 50ML 50 ML IV PRN; -PROPOFOL IV EMULSION 10 MG/ML 20 ML VIAL ONE
--- NOTE | 2017-12-25 11:05 | DIAGNOSTIC IMAGING REPORT ---
KUB HISTORY: Kidney stones. COMPARISON: KUB 12/11/2017. FINDINGS: The bowel gas pattern is unremarkable. There are no dilated loops of small bowel to suggest an obstruction. Multiple bilateral renal calculi are not significantly changed. Dominant stone within the lower pole the right kidney measures 6 mm. Punctate calcifications adjacent to the L4-5 disc space level remain unchanged and are consistent with phleboliths. No ureteral calculi. No pneumoperitoneum or pneumatosis. IMPRESSION: Stable bilateral nephrolithiasis. No ureteral calculi. Electronically signed by: Karthik Singleton M.D. 12/25/2017 11:04 AM Dictated Date/Time: 12/25/2017 11:02 AM
== END | disposition home or self-care (01) ==
LOC: C.RAD1850 10:54
PROVIDERS: ATTEND Urology
DX: N20.0 Calculus of kidney (principal)